=== PATIENT | female | born 1955 | race Caucasian/White ===

== ENCOUNTER → 2021-03-14 16:45 | Outpatient (CLI) | payer MEDICARE, SELFPAY ==
--- NOTE | ~2021-03-14 | MM_ITS ---
EXAMINATION: MM screening kasey BI w kenneth HISTORY: Screening TECHNIQUE: Craniocaudal and mediolateral oblique 3-D tomosynthesis images were obtained and synthetic 2-D images were generated. CAD analysis was submitted and interpreted. COMPARISON: Comparison to multiple prior studies sequentially, with oldest reviewed study dated 05/04. BREAST PARENCHYMAL COMPOSITION: There are scattered areas of fibroglandular density. FINDINGS: There is no evidence of suspicious mass, calcification, or architectural distortion to sugg est malignancy in either breast. There has been no suspicious interval change. IMPRESSION: 1. No mammographic evidence of malignancy. 2. Recommend routine screening mammography in one year. BI-RADS Category 1: Negative Reviewed, dictated and finalized at location A.
== END ==
PROVIDERS: Visit Provider Obstetrics & Gynecology
DX: Z12.31 Encounter for screening mammogram for malignant neoplasm of breast (principal)
CPT/HCPCS: 77063; 77067

== ENCOUNTER 2021-04-16 11:46 | Emergency (ER) | payer MEDICARE, SELFPAY ==
[2021-04-16] VITALS (7 sets, daily range): BP systolic 115–135; BP diastolic 63–98; PULSE 80–109; RESP 14–20; TEMP 37.1–37.2; O2SAT 97–98
--- NOTE | ~2021-04-16 | XR_ITS ---
EXAMINATION: XR chest 2V DATE: 04/16/2021 12:26 INDICATION: Cough and congestion TECHNIQUE: PA and lateral views of the chest were obtained. COMPARISON: Chest radiograph dated 09/06/2019 FINDINGS: The lungs are clear with no focal airspace opacities, pulmonary edema, pleural effusion or pneumothor ax. The cardiomediastinal silhouette is normal. Mild thoracic spondylosis. IMPRESSION: 1. No acute cardiopulmonary disease. Reviewed, dictated and finalized at location A.
[2021-04-16 13:13] LABS: Basophils Percent Auto 0.3 % (0.2-1.2); Hematocrit 40.3 % (37.0-47.0); Hemoglobin 12.9 g/dL (12.0-15.0); Immature Granulocyte Absolute 0.05 K/mm3 (0.00-0.031); Immature Granulocyte Percent A 0.7 % (0-0.5); Lymphocytes Absolute Auto 0.82 K/mm3 (0.9-3.2); Lymphocytes Percent Auto 10.9 % (18.3-44.2); Mean Corpuscular Hemoglobin 30.9 pg (26-34); Mean Corpuscular Volume 96.4 fl (80-100); Mean Platelet Volume 9.3 fl (7.4-10.4); Monocytes Absolute Auto 0.5 K/mm3 (0.1-0.6); Monocytes Percent Auto 6.1 % (2.6-8.5); Neutrophils Absolute Auto 6.2 K/mm3 (1.3-6.7); Platelet Count Result 252 k/mm3 (150-375); Red Blood Count 4.18 M/mm3 (4.2-5.4); White Blood Count 7.5 K/mm3 (4.5-10.0)
[2021-04-16 13:25] LABS: Add Urine Microscopic? YES; Appearance Urine Cloudy (Clear); Bacteria Urine Trace /hpf; Bilirubin Urine Negative (Negative); Blood Urine 2+ (Negative); Color Urine Yellow (Yellow); Glucose Urine UA Negative (Negative); Ketones Urine Negative (Negative); Leukocyte Esterase Ur 3+ LEU/UL (Negative); Mucus Urine Rare /lpf; Nitrate Urine Negative (Negative); Protein Urine 1+ mg/dL (Negative); RBC Urine 51-75 /hpf (0-2); Specific Grav Ur 1.025 (1.001-1.035); Squamous Epithelial Cell Urine Many /hpf (Few); Urobilinogen Urine Negative mg/dL (<2.0); WBC Urine 21-30 /hpf
[2021-04-16 13:34] LABS: Alanine Aminotransferase 32 U/L (4-35); Albumin Level 4.3 g/dL (3.5-5.1); Alkaline Phosphatase 72 U/L (38-126); Anion Gap 12 mmol/L (8-16); Aspartate Amino Transferase 34 U/L (14-36); Bilirubin,Total 0.8 mg/dL (0.2-1.3); Blood Urea Nitrogen 10 mg/dL (7-17); Carbon Dioxide 26 mmol/L (22-30); Chloride 99 mmol/L (98-107); Estimated CRCL calculation 59 ml/min; Estimated Glomerular Filt Rate > 60; Glucose 127 mg/dL (65-110); Lipase 25 U/L (23-300); Potassium 3.9 mmol/L (3.4-5.0); Sodium 137 mmol/L (137-145)
--- NOTE | 2021-04-16 14:57 | ED.GENADULT ---
HPI - General Adult General Chief complaint: Nausea/Vomiting/Diarrhea Stated complaint: Nausea,Congestion Time Seen by Provider: 04/16/21 14:16 Source: patient and RN notes reviewed Mode of arrival: ambulatory Limitations: no limitations History of Present Illness HPI narrative: This is a 66 year old female who presents for evaluation of cough and congestion. She states 2 days ago she developed sinus congestion and drainage. She is concerned because today she feels it has moved to her chest . She reports having a productive cough with green phlegm. She also complains of nausea and 2 episodes of emesis yesterday. She denies fever, chills, chest pain, sob, abdominal pain or diarrhea. She reports 1 year ago she was diagnosed with pneumonia so she wanted to come in to catch it early. Related Data Home Medications Medication Instructions Recorded Confirmed cetirizine [Wal-Zyr (cetirizine)] 10 mg PO DAILY 04/16/21 04/16/21 Allergies Allergy/AdvReac Type Severity Reaction Status Date / Time No Known Allergies Allergy Verified 04/16/21 14:11 Review of Systems Review of Systems: All systems reviewed & are unremarkable except as noted in HPI and below Constitutional: Constitutional: Denies chills, Reports fatigue and Denies fever(s) ENT: Reports nasal congestion Cardiovascular: Cardiovascular: Denies chest pain Respiratory: Respiratory: Reports cough and Denies dyspnea Gastrointestinal: Gastrointestinal: Denies abdominal pain, Denies diarrhea, Reports nausea and Reports vomiting PMFSH Past Medical History Medical History Adhesive capsulitis Anemia Endometriosis Environmental allergies Fibroids History of kidney stones Radius fracture 1988 Rhinitis Right shoulder pain Ureteral calculus 1993 Uterine fibroid Surgical History Surgical History History of dilation and curettage History of kidney surgery kidney stone x2 History of lithotripsy History of surgery on arm x2. History of tonsillectomy and adenoidectomy [place] teeth extracted Family History Family History Other Diabetes mellitus Family history of cardiovascular disease Family history of coronary artery disease Social History Social History Smoking status: Never smoker Second hand tobacco smoke exposure: Yes Alcohol intake: never Substance use: never Substance use type: does not use Gender identity (if verbalized by the patient): Female Exam Const: General: no acute distress and alert Orientation/consciousness: patient oriented x3 Eyes: EOM: EOMs intact bilaterally Chest: Chest palpation & inspection: normal inspection of the chest Resp: Effort & Inspection: normal respiratory effort and no retractions Auscultation: clear to auscultation bilaterally Cardio: Rate: regular rate Rhythm: regular rhythm Heart sounds: no murmurs GI: GI Palp: Yes Soft to palpation, No Tenderness to palpation present (GI) and No Guarding due to palpation present (GI) Auscultation: normal bowel sounds Skin: General skin exam: normal color Rashes: no rashes Neuro: General: patient oriented x3, moves all extremities and CN's II-XI intact bilaterally Psych: Mental Status: mental status grossly normal Affect: normal affect Course Reevaluation(s) Reevaluation #1: I Discussed with patient labs are unremarkable other than UTI. Chest xray is normal. I discussed discharge plan Date: 04/16/21 Time: 18:19 Vital Signs Vital signs: Vital Signs Temperature 98.7 F 04/16/21 12:51 Pulse Rate 109 H 04/16/21 12:51 Respiratory Rate 16 04/16/21 12:51 Blood Pressure 116/63 04/16/21 12:51 Pulse Oximetry 97 04/16/21 12:51 Temperature 98.9 F 04/16/21 14:09 Pulse Rate 80 04/16/21 18:45 Respi
[2021-04-16] MEDS: ONDANSETRON INJ 4 MG/2 ML VIAL IV PUSH ×2 (14:58→18:33)
[2021-04-16] MEDS: SODIUM CHLORIDE 0.9% IV 1,000 ML 999 ML IV CONT (15:05)
[2021-04-16 17:21] LABS: EDCOVIDSCREEN Negative (Negative)
== END 2021-04-16 18:46 | disposition home or self-care (01) ==
PROVIDERS: Emergency Medicine; Emergency Provider General Practice; PCP Family Medicine
DX: Z20.822 Contact with and (suspected) exposure to COVID-19 (principal); N39.0 Urinary tract infection, site not specified; J06.9 Acute upper respiratory infection, unspecified
CPT/HCPCS: 36415; 71046; 80053; 81001; 81025; 83690; 85025; 87086; 87088; 87426; 87804; 96365; 96375; 99284; C9803; J0696; J2405; J7030

== ENCOUNTER → 2021-05-27 18:00 | Outpatient (CLI) | payer MEDICARE, SELFPAY ==
--- NOTE | ~2021-05-27 | DEXA_ITS ---
Bone Density Report Name: Roxi Mariano Age: 66 Sex: Female Ethnicity: White Date of : 1955 Indication: postmenopausal; screening for osteoporosis; height loss; Referring Provider: Austin Teague Study: Bone densitometry was performed. Exam Date: May 27, 2021 Accession number: [id number] Bone Density: Region BMD T-score Z-score Classification AP Spine (L1-L4) 0.670 -3.4 -1.6 Osteoporosis Femoral Neck (Left) 0.591 -2.3 -0.7 Osteopenia Total Hip (Left) 0.743 -1.6 -0.3 Osteopenia Femoral Neck (Right) 0.634 -1.9 -0.4 Osteopenia Total Hip (Right) 0.763 -1.5 -0.2 Osteopenia Total Hip Mean 0.753 -1.6 -0.3 Osteopenia World Health Organization criteria for BMD impression classify patients as: Normal (T-score at or above -1.0), Osteopenia (T-score between -1.0 and -2.5), or Osteoporosis (T-score at or below -2.5). 10-year Fracture Risk: FRAX not reported because: Some T-score for Spine Total or Hip Total or Femoral Neck at or below -2.5 Clinical Information Provided by Patient: Has used the following medications: Vitamin D Patient maximum height was 64.5 Menopause Age: 54 Drinks caffeinated beverages Onset of menses at age 17.5 Number of children 2 Impression: The patient has osteoporosis, based on the Total Spine T-score. Discussion: INCREASED RISK OF FRACTURE. BONE DENSITY IS UNDESIRABLY LOW AT ONE OR MORE SKELETAL SITES, CONSISTENT WITH POSTMENOPAUSAL OSTEOPOROSIS. This patient's lowest T-score meets the World Health Organization's (WHO) criteria for osteoporosis at one or more sites (T-score -2.5 or below). In untreated patients, the risk of osteoporotic fracture increases approximately two-fold for each 1.0 SD decrease in T-score. Low bone density is not the only risk factor for fracture; also consider factors such as patient's age, frailty or poor health, risk of falling, risk of injury, previous osteoporotic fracture, family history of osteoporosis, cigarette smoking, low body weight, etc. Not everyone with low bone mineral density has osteoporosis; osteomalacia and other metabolic bone disorders should also be considered. Patients who have osteoporosis should be evaluated for specific diseases and conditions (secondary causes) that may cause or contribute to bone loss. The [place] Association [employer] Endocrinologists (AACE) and National Osteoporosis Foundation (NOF) recommend pharmacologic intervention for all postmenopausal women whose T-score is in this range. The patient should follow a healthful lifestyle (good nutrition with adequate calcium and vitamin D, and appropriate weight-bearing exercise). Follow-Up: Consider a repeat BMD and Vertebral Fracture Assessment (VFA) exam in 2 years or sooner if medically necessary, to reassess this patient's status. Reported by: FRAN on 05/16
== END ==
PROVIDERS: Visit Provider Obstetrics & Gynecology
DX: M81.0 Age-related osteoporosis without current pathological fracture (principal); M85.852 Other specified disorders of bone density and structure, left thigh; M85.851 Other specified disorders of bone density and structure, right thigh
CPT/HCPCS: 77080

== ENCOUNTER → 2021-09-10 02:14 | Outpatient (CLI) | payer MEDICARE, SELFPAY ==
[2021-09-10 19:36] LABS: SARS-CoV-2 RNA PCR Negative
== END ==
PROVIDERS: PCP Family Medicine; Visit Provider Family Medicine
DX: J02.9 Acute pharyngitis, unspecified (principal); Z20.822 Contact with and (suspected) exposure to COVID-19
CPT/HCPCS: C9803; U0003; U0005

== ENCOUNTER 2021-10-29 15:29 | Outpatient (CLI) | payer MEDICARE, SELFPAY ==
--- NOTE | ~2021-10-29 | XR_ITS ---
XR knee RT 3V 10/29/2021 15:51 Indication: Right knee pain Procedure: 3 views right knee Comparison: No prior studies for comparison. Findings: No fracture, subluxation or dislocation. No significant joint effusion. No foreign bodies. Osteopenia. There is anatomic alignment. There is curvilinear ossification adjacent to the lateral fe moral condyle, likely old avulsion injury. Impression: 1: No acute bone or joint abnormality. Reviewed, dictated and finalized at location B. Impression: 1: No acute bone or joint abnormality.
== END 2021-10-29 15:30 | disposition home or self-care (01) ==
PROVIDERS: PCP Family Medicine; Visit Provider Family Medicine
DX: M25.561 Pain in right knee (principal)
CPT/HCPCS: 73562

== ENCOUNTER 2021-12-09 09:12 | Outpatient (CLI) | payer MEDICARE, SELFPAY ==
--- NOTE | ~2021-12-09 | US_ITS ---
EXAMINATION: US joint non vasc comp RT DATE: 12/09/2021 09:52 INDICATION: Right-sided Marie's cyst. TECHNIQUE: Multiple grayscale and Doppler ultrasound images of the right lower limb were obtained. COMPARISON: Right knee radiographs 11/25/2021 FINDINGS: There is no abnormal mass in the popliteal fossa. No Marie's cyst. IMPRESSION: 1. No right-sided Marie's cyst. Reviewed, dictated and finalized at location B.
== END 2021-12-09 09:13 | disposition home or self-care (01) ==
PROVIDERS: PCP Family Medicine; Visit Provider Nurse Practitioner Family
DX: M71.21 Synovial cyst of popliteal space [Baker], right knee (principal)
CPT/HCPCS: 76881

== ENCOUNTER 2022-01-21 07:30 | Outpatient (CLI) | payer MEDICARE, SELFPAY ==
--- NOTE | ~2022-01-21 | MR_ITS ---
EXAMINATION: MR knee RT wo con DATE: 01/21/2022 08:46 INDICATION: Unilateral primary osteoarthritis, right knee. TECHNIQUE: Magnetic resonance imaging (MRI) of the right knee was performed without intravenous contr ast. Sequences included axial PD-weighted FS FSE, coronal PD-weighted FSE and PD-weighted FS FSE, sag ittal PD-weighted FSE, and sagittal T2-weighted FS FSE. COMPARISON: Right knee radiographs 11/25/2021 FINDINGS: Medial compartment: There is a complex tear of posterior horn of medial meniscus. There is partial-thickness cartilage lo ss of femoral condyle, deep at the central and extreme posterior articular surface with mild subchond ral edema-like marrow signal intensity at the extreme posterior surface. There is shallow partial-thi ckness cartilage loss of tibial condyle. Osteophytes are noted. Lateral compartment: Lateral meniscus is normal. There is cartilage surface irregularity of femoral condyle and tibial con dyle. Osteophytes are noted. Patellofemoral compartment: There is full-thickness cartilage loss of patellar median ridge and medial facet with mild subchondra l edema-like marrow signal intensity. There is partial-thickness cartilage loss of medial trochlea. Ligaments and tendons: The anterior and posterior cruciate ligaments are normal. Medial collateral ligament and lateral ed ateral ligament complex are normal. There is mild patellar tendinopathy. Fluid: There is a moderate-sized knee joint effusion. There is trace fluid in a Marie's cyst. There is mild superficial infrapatellar bursitis. IMPRESSION: 1. Severe chondrosis of patellofemoral compartment, moderate chondrosis of medial compartment, and mi ld chondrosis of lateral compartment. 2. Complex tear of medial meniscus. 3. Moderate-sized knee joint effusion. Reviewed, dictated and finalized at location A. IMPRESSION: 1. Severe chondrosis of patellofemoral compartment, moderate chondrosis of medi al compartment, and mild chondrosis of lateral compartment. 2. Complex tear of medial meniscus. 3. Moderate-sized knee joint effusion.
== END 2022-01-21 07:31 | disposition home or self-care (01) ==
PROVIDERS: PCP Family Medicine; Visit Provider Nurse Practitioner Family
DX: M17.11 Unilateral primary osteoarthritis, right knee (principal); M22.2X1 Patellofemoral disorders, right knee; S83.231A Complex tear of medial meniscus, current injury, right knee, initial encounter; M25.461 Effusion, right knee
CPT/HCPCS: 73721

== ENCOUNTER 2022-02-18 07:25 | Outpatient (CLI) | payer MEDICARE, SELFPAY ==
--- NOTE | 2022-02-18 07:54 | ECG_ITS ---
Measurements Intervals [place] Rate: 81 P: 40 CA: 150 QRS: 1 QRSD: 88 T: 50 QT: 357 QTc: 415 Interpretive Statements SINUS RHYTHM LOW QRS VOLTAGE IN PRECORDIAL LEADS BASELINE ARTIFACT- I, II, III, V4, V6 BORDERLINE ECG Electronically Signed On 02-18-2022 8:15:26 CDT by Gulshan Toth D.O.
[2022-02-18 08:38] LABS: Basophils Percent Auto 0.6 % (0.2-1.2); Eosinophils Absolute Auto 0.2 K/mm3 (0-0.3); Eosinophils Percent Auto 3.4 % (0-4.4); Hematocrit 38.7 % (37.0-47.0); Hemoglobin 12.6 g/dL (12.0-15.0); Immature Granulocyte Absolute 0.02 K/mm3 (0.00-0.031); Immature Granulocyte Percent A 0.4 % (0-0.5); Lymphocytes Absolute Auto 2.05 K/mm3 (0.9-3.2); Lymphocytes Percent Auto 40.8 % (18.3-44.2); Mean Corpuscular HGB Conc 32.6 g/dl (32-36); Mean Corpuscular Hemoglobin 31.7 pg (26-34); Mean Corpuscular Volume 97.2 fl (80-100); Mean Platelet Volume 9.9 fl (7.4-10.4); Monocytes Absolute Auto 0.4 K/mm3 (0.1-0.6); Monocytes Percent Auto 8.2 % (2.6-8.5); Neutrophils Absolute Auto 2.4 K/mm3 (1.3-6.7); Neutrophils Percent Auto 46.6 % (45.5-73.1); Platelet Count Result 262 k/mm3 (150-375); Red Blood Count 3.98 M/mm3 (4.2-5.4); Red Cell Distribution Width 12.7 % (11.5-14.5)
== END 2022-02-18 07:26 | disposition home or self-care (01) ==
LOC: ANHLAB 07:28
PROVIDERS: PCP Family Medicine; Visit Provider Nurse Practitioner
DX: Z01.810 Encounter for preprocedural cardiovascular examination (principal); R94.31 Abnormal electrocardiogram [ECG] [EKG]
CPT/HCPCS: 36415; 85025; 93005

== ENCOUNTER 2022-02-25 00:58 | Day surgery (SDC) | payer MEDICARE, SELFPAY ==
--- NOTE | 2022-02-18 11:12 | PC.NURSE ---
Report to the Outpatient Waiting Room, entrance under the green pavilion located off [facility], at time __1130 on date _02/25/22 . OR Time: _1330 . - You and your visitor will be asked a series of questions to screen for COVID 19 for your protection. - Only one visitor is allowed at this time. - The patient visitor is requested to leave or wait in car when not with patient. - A mask is required within the hospital. Patients may have clear liquids (water, carbonated beverages, clear teas, apple juice) until 3 hours prior to surgery with a maximum of 20 ounces. - No food from midnight until time of surgery - Infants may have breast milk until 4 hours before surgery, infant formula 6 hours prior to surgery. - Children will be allowed to drink immediately following surgery. If applicable, please bring a bottle or sippy cup to assist with drinking. Juice, water, soda, and popsicles are readily available. For infants on formula, please bring formula the day of surgery. Pacifiers are allowed. Take the following medications with a SIP of water the morning of surgery: _NONE Medications to discontinue per physician ALL VITAMINS AND SUPPLEMENTS 3 DAYS PRE OP Date to take last dose 02/21/22 Please no make-up, nail maltese, hairspray, perfume, deodorant, or body powder the day of surgery. No jewelry (including any body piercings) or valuables the day of surgery, leave them at home. Please take a shower or bath the night before, or the morning of, surgery with an antibacterial soap. Wear comfortable, loose fitting clothing. Children are encouraged to wear pajamas. - Jewelry must be removed prior to entering the operating room. Rings and piercings that are not removed may be cut off. - The hospital will not accept responsibility for valuables. - Please leave all valuables, including medications, at home the day of surgery. If you are going home after surgery, a licensed chuck wagon driver must drive you home. - NO public transportation without another adult. - We recommend that an adult stay with you for 24 hours following discharge. - We also recommend that you do not drive, make important decision, drink alcoholic beverages, or take any drugs that were not prescribed by your health care provider for at least 24 hours after your discharge time. For Pediatric surgeries, we recommend two adults accompany the child home (only one inside the building at this time). Follow any additional instructions given to you from your surgeon. If you or anyone in your household have experienced Covid symptoms in the past week, please notify your surgeon or the nurse liaison at the phone number below for possible testing. Telephone instructions given to __PATIENT and asked if any additional questions and then verbalized understanding. Patient advised to call surgeon office or pre surgery nurse liaison [phone] if any additional questions.
[2022-02-18 11:16] VITALS: BMI 26.4
[2022-02-25] VITALS (8 sets, daily range): BP systolic 103–142; BP diastolic 56–90; PULSE 65–102; RESP 13–18; TEMP 36.4–36.8; O2SAT 99–100
--- NOTE | 2022-02-25 07:13 | WPDHPUPDATE1 ---
History and Physical Update Update Date/Time: 02/25/22 07:13 History and Physical has been reviewed, including an updated exam of the patient. There are NO changes in the patient's condition. Risks, benefits, and alternatives have been discussed and questions answered. Patient agrees to proceed with procedure.
[2022-02-25] MEDS: CELECOXIB 200 MG CAPSULE PO (09:04)
[2022-02-25] MEDS: ACETAMINOPHEN 500 MG TABLET 1000 MG PO (09:04)
[2022-02-25] MEDS: LACTATED RINGERS 1,000 ML 30 ML IV CONT (09:35)
--- NOTE | 2022-02-25 09:52 | WPDANESEPPF ---
Anes - Initial Pre Proc Eval Procedure: Operation Date: 02/25/22 10:30 Proposed Procedures p Right Knee Arthroscopy, Proceed As Indicated - Pranav Lanier MD Date/Time: 02/25/22 09:52 Surgeon: Pranav Lanier MD Pre Op Diagnosis: right knee medial meniscus tear Patient Data Age: 67 Gender: F Height: 1.63 m Weight: 69.2 kg Last Vital Signs Temp 36.8 C 02/25/22 09:43 Pulse 93 02/25/22 09:43 Resp 16 02/25/22 09:43 BP 113/56 L 02/25/22 09:43 Pulse Ox 100 02/25/22 09:43 O2 Del Method Room Air 02/25/22 09:43 Allergies Allergy/AdvReac Type Severity Reaction Status Date / Time No Known Allergies Allergy Verified 02/25/22 08:47 Home Medications Medication Instructions Recorded Confirmed Type acetaminophen 500 mg tablet 500 mg PO Q6H PRN Pain 02/18/22 02/25/22 History (Acetaminophen Extra Strength) cetirizine 10 mg tablet (Zyrtec) 10 mg PO DAILY 02/18/22 02/25/22 History cholecalciferol (vitamin D3) 50 50 mcg PO DAILY 02/18/22 02/25/22 History mcg (2,000 unit) tablet Patient hx anesthesia problems: none Family hx anesthesia problems: none Results Review: All pre-operative results and documents have been reviewed as part of the pre-operative evaluation. [facility] Past Medical History Medical History (Updated 02/17/22 @ 13:08 by Elizabet Bailey NP) Adhesive capsulitis Anemia Endometriosis Environmental allergies Fibroids History of kidney stones Medial meniscus tear Radius fracture 1988 Right knee DJD Right knee pain Right shoulder pain SOB (shortness of breath) Ureteral calculus 1993 Uterine fibroid Surgical History Surgical History History of dilation and curettage History of kidney surgery (~2018) kidney stone x2 1998 History of lithotripsy (~2018) 1998 History of surgery on arm (~1988) x2. History of tonsillectomy and adenoidectomy (~1959) [place] teeth extracted Family History Family History Other Diabetes mellitus Family history of cardiovascular disease Family history of coronary artery disease Social History Social History Smoking status: Never smoker Second hand tobacco smoke exposure: Yes Alcohol intake: never Substance use: never Substance use type: does not use Living arrangements: with family Gender identity (if verbalized by the patient): Female Spiritual care concerns: No Anes - Eval Final PreProcedure Day of Procedure 02/25/22 09:52 Patient weight: overweight Heart: regular rate and rhythm Lungs: clear to auscultation and normal air movement Airway: Mallampati scale class II Neurological: alert and oriented Last oral intake: >/= 8 hours ASA classification: II Emergent: no Anesthetic plan: proceed Anesthesia type and monitoring: general LMA Results Review: All pre-operative results and documents have been reviewed as part of the pre-operative evaluation. Informed Consent: The patient's anesthetic plan and its attendant risks and benefits were discussed with the patient/family/POA. Questions were solicited and answers provided to the satisfaction of the patient/family/POA.
[2022-02-25] MEDS: SCOPOLAMINE 1.5 MG PATCH TRANSDERM (10:05)
--- NOTE | 2022-02-25 10:05 | WPDANESEPPF ---
Anes - Initial Pre Proc Eval Procedure: Operation Date: 02/25/22 10:30 Proposed Procedures p Right Knee Arthroscopy, Proceed As Indicated - Pranav Lanier MD Date/Time: 02/25/22 10:05 Surgeon: Pranav Lanier MD Pre Op Diagnosis: right knee medial meniscus tear Patient Data Age: 67 Gender: F Height: 1.63 m Weight: 69.2 kg Last Vital Signs Temp 36.8 C 02/25/22 09:43 Pulse 93 02/25/22 09:43 Resp 16 02/25/22 09:43 BP 113/56 L 02/25/22 09:43 Pulse Ox 100 02/25/22 09:43 O2 Del Method Room Air 02/25/22 09:43 Allergies Allergy/AdvReac Type Severity Reaction Status Date / Time No Known Allergies Allergy Verified 02/25/22 08:47 Home Medications Medication Instructions Recorded Confirmed Type acetaminophen 500 mg tablet 500 mg PO Q6H PRN Pain 02/18/22 02/25/22 History (Acetaminophen Extra Strength) cetirizine 10 mg tablet (Zyrtec) 10 mg PO DAILY 02/18/22 02/25/22 History cholecalciferol (vitamin D3) 50 50 mcg PO DAILY 02/18/22 02/25/22 History mcg (2,000 unit) tablet Patient hx anesthesia problems: none Family hx anesthesia problems: none Results Review: All pre-operative results and documents have been reviewed as part of the pre-operative evaluation. PMFSH Past Medical History Medical History Adhesive capsulitis Anemia Endometriosis Environmental allergies Fibroids History of kidney stones Medial meniscus tear Radius fracture 1988 Right knee DJD Right knee pain Right shoulder pain SOB (shortness of breath) Ureteral calculus 1993 Uterine fibroid Surgical History Surgical History History of dilation and curettage History of kidney surgery (~2018) kidney stone x2 1998 History of lithotripsy (~2018) 1998 History of surgery on arm (~1988) x2. History of tonsillectomy and adenoidectomy (~1959) [place] teeth extracted Family History Family History Other Diabetes mellitus Family history of cardiovascular disease Family history of coronary artery disease Social History Social History Smoking status: Never smoker Second hand tobacco smoke exposure: Yes Alcohol intake: never Substance use: never Substance use type: does not use Living arrangements: with family Gender identity (if verbalized by the patient): Female Spiritual care concerns: No Anes - Eval Final PreProcedure Day of Procedure 02/25/22 10:05 Patient weight: overweight Heart: regular rate and rhythm Lungs: clear to auscultation Airway: Mallampati scale class II Neurological: alert and oriented ASA classification: II Emergent: no Anesthetic plan: proceed Anesthesia type and monitoring: general LMA and standard monitoring Results Review: All pre-operative results and documents have been reviewed as part of the pre-operative evaluation. Informed Consent: The patient's anesthetic plan and its attendant risks and benefits were discussed with the patient/family/POA. Questions were solicited and answers provided to the satisfaction of the patient/family/POA.
[2022-02-25] MEDS: ceFAZolin 2 GM/D5W 50 ML 2 GM/50 ML BAG IVPB (10:14)
[2022-02-25] MEDS: BUPIVACAINE HCL 0.25% PF 30 ML VIAL INFILTRATE (10:44)
--- NOTE | 2022-02-25 11:19 | P.OP_ITS ---
Procedure Note - Detailed Date of Procedure 02/25/22 Pre-op Diagnosis right knee medial meniscus tear Post-op Diagnosis Same Procedure Performed LEFT KNEE SCOPE Surgeon Pranav Lanier MD Anesthesia General Description of Procedure PATIENT WAS TAKEN TO THE OR. LEFT LEG WAS PREPPED AND DRAPED STERILE. TROCARS WE RE PLACED IN THE USUAL FASHION. CAMERA WAS INTRODUCED. THERE WAS CHONDROMALACIA TO THE PATELLA FEMORAL JOINT. THE MEDIAL COMPARTMENT SHOWED CHONDROMALACIA TO THE MEDIAL FEMORAL CONDYLE. A SHAVER WAS USED TO PREFORM A CHONDROPLASTY. THERE WAS A COMPLEX MEDIAL MENISCUS TEAR. THE TEAR WAS RESECTED WITH A BITER AND A SHAVER DOWN TO A SMOOTH BASE. ABOUT 20% OF THE MENISCUS WAS REMOVED. THE ACL WAS INTACT. THE LATERAL MENISCUS WAS NOT TORN. THERE WAS NO CHONDROMALACIA TO THE LATERAL COMPARTMENT. THE PATELLO FEMORAL JOINT UNDERWENT CHONDROPLASTY. THERE WAS GRADE 2 CHONDROMALACIA IN PART OF THE TROCHLEA AND PART OF THE PATELLA. SYNOVECTOMY WAS PREFORMED IN THE SUPERIOR MEDIAL COMPARTMENT. THE WOUNDS WERE APPROXIMATED WITH 4.0 NYLON. STERILE DRESSING WAS APPLIED. PATIENT WAS EXTUBATED. Estimated Blood Loss 5 Complications No immediate complications Condition Stable Disposition PACU
--- NOTE | 2022-02-25 11:20 | SUR.PHASEI ---
Simple mask removed at 1120.
== END 2022-02-25 12:40 | disposition home or self-care (01) ==
PROVIDERS: PCP Family Medicine; Visit Provider Orthopaedic Surgery
PROC: (CPT 29870; principal; 2022-02-25 10:30)
DX: M23.331 Other meniscus derangements, other medial meniscus, right knee (principal); M94.261 Chondromalacia, right knee; M17.11 Unilateral primary osteoarthritis, right knee
CPT/HCPCS: 29881; 36415; 85025; 93005; A9270; J0690; J1100; J2250; J2405; J2704; J7120

== ENCOUNTER 2022-11-30 08:01 | Outpatient (CLI) | payer MEDICARE, SELFPAY ==
[2022-11-30 19:14] LABS: Basophils Percent Auto 0.4 % (0.2-1.2); Eosinophils Absolute Auto 0.2 K/mm3 (0-0.3); Eosinophils Percent Auto 3.1 % (0-4.4); Hematocrit 42.1 % (37.0-47.0); Hemoglobin 13.2 g/dL (12.0-15.0); Immature Granulocyte Absolute 0.02 K/mm3 (0.00-0.031); Immature Granulocyte Percent A 0.4 % (0-0.5); Lymphocytes Absolute Auto 1.71 K/mm3 (0.9-3.2); Lymphocytes Percent Auto 33.5 % (18.3-44.2); Mean Corpuscular HGB Conc 31.4 g/dl (32-36); Mean Corpuscular Hemoglobin 31.2 pg (26-34); Mean Corpuscular Volume 99.5 fl (80-100); Mean Platelet Volume 9.9 fl (7.4-10.4); Monocytes Absolute Auto 0.4 K/mm3 (0.1-0.6); Neutrophils Absolute Auto 2.8 K/mm3 (1.3-6.7); Neutrophils Percent Auto 55.6 % (45.5-73.1); Platelet Count Result 300 k/mm3 (150-375); Red Blood Count 4.23 M/mm3 (4.2-5.4); White Blood Count 5.1 K/mm3 (4.5-10.0)
[2022-11-30 20:26] LABS: Alanine Aminotransferase 24 U/L (6-35); Albumin Level 4.2 g/dL (3.5-5.1); Alkaline Phosphatase 69 U/L (38-126); Anion Gap 3 mmol/L (8-16); Aspartate Amino Transferase 34 U/L (14-36); Bilirubin,Total 0.6 mg/dL (0.2-1.3); Blood Urea Nitrogen 12 mg/dL (7-17); Calcium 8.9 mg/dL (8.4-10.2); Carbon Dioxide 32 mmol/L (22-30); Chloride 104 mmol/L (98-107); Cholesterol 245 mg/dL (0-200); Estimated Glomerular Filt Rate > 60; Glucose 93 mg/dL (65-110); HDL Direct 35 mg/dL; Potassium 4.6 mmol/L (3.4-5.0); Sodium 139 mmol/L (137-145); Triglycerides 151 mg/dL (<150)
[2022-11-30 20:37] LABS: LDL Cholesterol Direct 157 mg/dL
== END 2022-11-30 08:02 | disposition home or self-care (01) ==
LOC: ANHGOSHLAB 08:02
PROVIDERS: PCP Family Medicine; Visit Provider Nurse Practitioner Family
DX: E78.5 Hyperlipidemia, unspecified (principal)
CPT/HCPCS: 36415; 80053; 80061; 84443; 85025

== ENCOUNTER 2023-03-01 08:02 | Outpatient (CLI) | payer MEDICARE, SELFPAY ==
[2023-03-01 13:51] LABS: Cholesterol 220 mg/dL (0-200); HDL Direct 40 mg/dL; Triglycerides 109 mg/dL (<150)
[2023-03-01 14:02] LABS: LDL Cholesterol Direct 129 mg/dL
== END 2023-03-01 08:03 | disposition home or self-care (01) ==
PROVIDERS: PCP Family Medicine; Visit Provider Family Medicine
DX: E78.5 Hyperlipidemia, unspecified (principal)
CPT/HCPCS: 36415; 80061

== ENCOUNTER 2023-07-06 13:35 | Outpatient (CLI) | payer MEDICARE, SELFPAY ==
--- NOTE | 2023-07-06 14:34 | ECG_ITS ---
Measurements Intervals [place] Rate: 82 P: 46 ND: 208 QRS: -1 QRSD: 73 T: 48 QT: 358 QTc: 419 Interpretive Statements SINUS RHYTHM LOW QRS VOLTAGE IN PRECORDIAL LEADS CANNOT RULE OUT SEPTAL INFARCT, AGE INDETERMINATE BASELINE ARTIFACT- I, II, III, AVR, AVL, AVF, V3-V6 ABNORMAL ECG COMPARED TO ECG 02/18/2022 08:01:35 NO SIGNIFICANT CHANGES Electronically Signed On 07-06-2023 16:47:08 REFURBISH TECHNICIAN by Gulshan Toth D.O.
[2023-07-06 15:00] LABS: Basophils Percent Auto 0.2 % (0.2-1.2); Eosinophils Absolute Auto 0.1 K/mm3 (0-0.3); Eosinophils Percent Auto 1.9 % (0-4.4); Hematocrit 39.5 % (37.0-47.0); Hemoglobin 12.2 g/dL (12.0-15.0); Immature Granulocyte Absolute 0.01 K/mm3 (0.00-0.031); Immature Granulocyte Percent A 0.2 % (0-0.5); Lymphocytes Absolute Auto 2.43 K/mm3 (0.9-3.2); Mean Corpuscular HGB Conc 30.9 g/dl (32-36); Mean Corpuscular Hemoglobin 30.7 pg (26-34); Mean Corpuscular Volume 99.5 fl (80-100); Mean Platelet Volume 9.7 fl (7.4-10.4); Monocytes Absolute Auto 0.4 K/mm3 (0.1-0.6); Monocytes Percent Auto 6.6 % (2.6-8.5); Neutrophils Absolute Auto 3.4 K/mm3 (1.3-6.7); Neutrophils Percent Auto 53.1 % (45.5-73.1); Platelet Count Result 284 k/mm3 (150-375); Red Blood Count 3.97 M/mm3 (4.2-5.4); Red Cell Distribution Width 12.7 % (11.5-14.5); White Blood Count 6.4 K/mm3 (4.5-10.0)
[2023-07-06 15:08] LABS: Alanine Aminotransferase 21 U/L (6-35); Albumin Level 4.3 g/dL (3.5-5.1); Alkaline Phosphatase 64 U/L (38-126); Anion Gap 5 mmol/L (8-16); Aspartate Amino Transferase 30 U/L (14-36); Bilirubin,Total 0.7 mg/dL (0.2-1.3); Blood Urea Nitrogen 18 mg/dL (7-17); Calcium 9.3 mg/dL (8.4-10.2); Carbon Dioxide 30 mmol/L (22-30); Chloride 105 mmol/L (98-107); Estimated Glomerular Filt Rate > 60; Glucose 94 mg/dL (65-110); Potassium 4.5 mmol/L (3.4-5.0); Sodium 140 mmol/L (137-145)
[2023-07-06 15:13] LABS: INR 0.9; Prothrombin Time 12.7 Seconds (11.1-14.7)
[2023-07-06 15:14] LABS: Partial Thromboplastin Time 28.2 SECONDS (22.3-36.8)
== END 2023-07-06 13:36 | disposition home or self-care (01) ==
LOC: ANHSURGERY 13:42
PROVIDERS: PCP Family Medicine; Visit Provider Urology
DX: N81.4 Uterovaginal prolapse, unspecified (principal); Z01.818 Encounter for other preprocedural examination; R94.31 Abnormal electrocardiogram [ECG] [EKG]
CPT/HCPCS: 36415; 80053; 85025; 85610; 85730; 86850; 86900; 86901; 93005

== ENCOUNTER 2023-07-19 02:10 | Day surgery (SDC) | payer MEDICARE, SELFPAY ==
--- NOTE | 2023-07-06 13:23 | PC.NURSE ---
PRE-OP INSTRUCTIONS, PLEASE READ CAREFULLY Report to the Outpatient Waiting Room, entrance under the green pavilion located off [facility], at time _0930_ on date _07/19/23_. Planned Procedure Time: _1130_. PACK A SMALL OVERNIGHT BAG AND LEAVE IN THE CAR Time changes happen often and if your time is changed the preop area will call you the afternoon before. - You and your visitor will be asked to self-screen and do not enter if you have any COVID symptoms. - A mask is optional within the hospital at this time. -VISITING HOURS 8AM-8PM Patients may have clear liquids (water, carbonated beverages, clear teas, apple juice) until 3 hours prior to surgery (0830 AM) with a maximum of 20 ounces. - No food from midnight until time of surgery Take the following medications with a SIP of water the morning of surgery: _TYLENOL IF NEEDED_ DO NOT STOP ANY OF YOUR OTHER PRESCRIPTION MEDICATIONS PRIOR TO SURGERY ?EXCEPT THE FOLLOWING Medications to discontinue per physician ____NONE____, Date to take last dose Please no make-up, nail nauruan, hairspray, perfume, deodorant, or body powder the day of surgery. No jewelry (including any body piercings) or valuables the day of surgery, leave them at home. Please take a shower or bath the night before, or the morning of, surgery with an antibacterial soap. Wear comfortable, loose fitting clothing. - Jewelry must be removed prior to entering the operating room. Rings and piercings that are not removed may be cut off. - The hospital will not accept responsibility for valuables. - Please leave all valuables, including medications, at home the day of surgery. If you are going home after surgery, a licensed school bus driver/teacher assistant must drive you home. - NO public transportation without another adult if you receive anesthesia. - We recommend that an adult stay with you for 24 hours following discharge. - We also recommend that you do not drive, make important decision, drink alcoholic beverages, or take any drugs that were not prescribed by your health care provider for at least 24 hours after your discharge time. Follow any additional instructions given to you from your surgeon. If you or anyone in your household have experienced Covid symptoms in the past week, please notify your surgeon or the nurse liaison at the phone number below for possible testing. Instructions given to _PATIENT_and asked if any additional questions and then verbalized understanding. Patient advised to call surgeon office or pre surgery nurse liaison [phone] if any additional questions.
[2023-07-06 14:05] VITALS: BP 138/66; PULSE 78; RESP 18; TEMP 36.9; O2SAT 100; BMI 25.9
--- NOTE | 2023-07-10 18:43 | PM.IMHP ---
H&P: HPI History of Present Illness Date/Time: 07/10/23 18:43 Chief Complaint: POP/occult ISD Narrative: 68 yo with uterine prolpase and MARINA noted on uro c/2 ISD Review of Systems Review of Systems: All systems reviewed & are unremarkable except as noted in HPI and below PMFSH Past Medical History Medical History Adhesive capsulitis Anemia Endometriosis Environmental allergies Fibroids Gastroesophageal reflux disease History of kidney stones Hyperlipidemia Medial meniscus tear Mixed stress and urge urinary incontinence Osteoporosis Radius fracture 1988 Right knee DJD Right knee pain Right shoulder pain SOB (shortness of breath) Ureteral calculus 1993 Uterine fibroid Surgical History Surgical History History of dilation and curettage History of kidney surgery (~2018) kidney stone x2 1998 History of lithotripsy (~2018) 1998 History of surgery on arm (~1988) x2. History of tonsillectomy and adenoidectomy (~1959) [place] teeth extracted Family History Family History Other Diabetes mellitus Family history of cardiovascular disease Family history of coronary artery disease Social History Social History Smoking status: Never smoker Second hand tobacco smoke exposure: No Alcohol intake: never Substance use: never Substance use type: does not use Lack of Transportation: No Lack of Food: Never True Current Housing: I Have Housing Concerned About Future Housing: No Difficulty Paying Gas/Electric Bills: No Difficulty Paying for Meds: No Currently Unemployed: No Education: High School Diploma/GED Living arrangements: with family Occupation/Education: retired Gender identity (if verbalized by the patient): Female Spiritual care concerns: No Agree to blood products: Yes Meds Home Medications and Allergies Home Medications Medication Instructions Recorded Confirmed Type acetaminophen 500 mg tablet 500 mg PO Q6H PRN Pain 02/18/22 07/06/23 History (Acetaminophen Extra Strength) cetirizine 10 mg tablet (Zyrtec) 10 mg PO DAILY 02/18/22 07/06/23 History cholecalciferol (vitamin D3) 50 50 mcg PO DAILY 02/18/22 07/06/23 History mcg (2,000 unit) tablet famotidine 20 mg tablet 20 mg PO DAILY PRN ACID REFLEX 07/06/23 07/06/23 History Allergies Allergy/AdvReac Type Severity Reaction Status Date / Time latex AdvReac SKIN Verified 07/06/23 14:02 IRRITATION Exam Narrative: NAD normal brething fixed urethra anterior wall +4 [place] at 0 Assessment and Plan Assessment and plan (1) Uterine prolapse: Code(s): N81.4 - Uterovaginal prolapse, unspecified Status: Acute (2) Intrinsic sphincter deficiency (ISD): Code(s): N36.42 - Intrinsic sphincter deficiency (ISD) Status: Acute Plan Robotic Colpopexy/Bulking agent. Risks, bennifits, alternative discussed and documented in office chart
--- NOTE | 2023-07-16 10:57 | PM.IMHP ---
H&P: HPI History of Present Illness Date/Time: 07/16/23 10:57 Chief Complaint: prolapse and urinary incontinence Narrative: 68-year-old with uterine prolapse. Stress incontinence noted on Review of Systems Review of Systems: All systems reviewed & are unremarkable except as noted in HPI and below PMFSH Past Medical History Medical History Adhesive capsulitis Anemia Endometriosis Environmental allergies Fibroids Gastroesophageal reflux disease History of kidney stones Hyperlipidemia Medial meniscus tear Mixed stress and urge urinary incontinence Osteoporosis Radius fracture 1988 Right knee DJD Right knee pain Right shoulder pain SOB (shortness of breath) Ureteral calculus 1993 Uterine fibroid Surgical History Surgical History History of dilation and curettage History of kidney surgery (~2018) kidney stone x2 1998 History of lithotripsy (~2018) 1998 History of surgery on arm (~1988) x2. History of tonsillectomy and adenoidectomy (~1959) [place] teeth extracted Family History Family History Other Diabetes mellitus Family history of cardiovascular disease Family history of coronary artery disease Social History Social History Smoking status: Never smoker Second hand tobacco smoke exposure: No Alcohol intake: never Substance use: never Substance use type: does not use Lack of Transportation: No Lack of Food: Never True Current Housing: I Have Housing Concerned About Future Housing: No Difficulty Paying Gas/Electric Bills: No Difficulty Paying for Meds: No Currently Unemployed: No Education: High School Diploma/GED Living arrangements: with family Occupation/Education: retired Gender identity (if verbalized by the patient): Female Spiritual care concerns: No Agree to blood products: Yes Meds Home Medications and Allergies Home Medications Medication Instructions Recorded Confirmed Type acetaminophen 500 mg tablet 500 mg PO Q6H PRN Pain 02/18/22 07/06/23 History (Acetaminophen Extra Strength) cetirizine 10 mg tablet (Zyrtec) 10 mg PO DAILY 02/18/22 07/06/23 History cholecalciferol (vitamin D3) 50 50 mcg PO DAILY 02/18/22 07/06/23 History mcg (2,000 unit) tablet famotidine 20 mg tablet 20 mg PO DAILY PRN ACID REFLEX 07/06/23 07/06/23 History Allergies Allergy/AdvReac Type Severity Reaction Status Date / Time latex AdvReac SKIN Verified 07/06/23 14:02 IRRITATION Exam Narrative: no acute distress alert orient x3 fixed urethra anterior wall +4. [place] at 0 Assessment and Plan Assessment and plan (1) Intrinsic sphincter deficiency (ISD): Code(s): N36.42 - Intrinsic sphincter deficiency (ISD) Status: Acute (2) Uterine prolapse: Code(s): N81.4 - Uterovaginal prolapse, unspecified Status: Acute Plan plan for robotic colpopexy as well as bulking agent. Understands risks of bleeding, infection, damage to surrounding organs or the urinary tract, recurrent prolapse, recurrent or persistent incontinence, postoperative voiding dysfunction including incontinence and retention, hip and leg pain, dyspareunia, mesh related complications including exposure and extrusion, need for ancillary procedures. She agrees to proceed.
[2023-07-19] VITALS (9 sets, daily range): BP systolic 99–121; BP diastolic 51–65; PULSE 81–98; RESP 11–15; TEMP 36.2–36.8; O2SAT 92–100; BMI 25.9
--- NOTE | 2023-07-19 07:10 | WPDHPUPDATE1 ---
History and Physical Update Update Date/Time: 07/19/23 07:10 History and Physical has been reviewed, including an updated exam of the patient. There are NO changes in the patient's condition. Risks, benefits, and alternatives have been discussed and questions answered. Patient agrees to proceed with procedure.
[2023-07-19] MEDS: LACTATED RINGERS 1,000 ML 30 ML IV CONT ×2 (10:10→14:10)
[2023-07-19] MEDS: ACETAMINOPHEN 500 MG TABLET 1000 MG PO (10:19)
[2023-07-19] MEDS: KETOROLAC 15 MG/ML VIAL (*BKC) IV PUSH ×2 (10:20→18:21)
[2023-07-19] MEDS: SCOPOLAMINE 1.5 MG PATCH TRANSDERM (10:55)
--- NOTE | 2023-07-19 10:56 | WPDANESEPPF ---
Anes - Initial Pre Proc Eval Procedure: Operation Date: 07/19/23 11:30 Proposed Procedures p Robotic Sacrocolpopexy - Barber Lacey MD s Cystoscopy with Injection Bulking Agent - Barber Lacey MD s Robotic Assisted Laparoscopic Supracervical Hysterectomy with Bilateral Salpingo-oophorectomy - Austin Teague MD Date/Time: 07/19/23 10:56 Surgeon: Barber Lacey MD Pre Op Diagnosis: Complete Uterovaginal Prolapse, Stress Incont Patient Data Age: 68 Gender: F Height: 1.63 m Weight: 68.4 kg Last Vital Signs Temp 98.5 F 07/06/23 14:05 Pulse 78 07/06/23 14:05 Resp 18 07/06/23 14:05 BP 138/66 07/06/23 14:05 Pulse Ox 100 07/06/23 14:05 O2 Del Method Room Air 07/06/23 14:05 Allergies Allergy/AdvReac Type Severity Reaction Status Date / Time latex AdvReac SKIN Verified 07/06/23 14:02 IRRITATION Home Medications Medication Instructions Recorded Confirmed Type acetaminophen 500 mg tablet 500 mg PO Q6H PRN Pain 02/18/22 07/06/23 History (Acetaminophen Extra Strength) cetirizine 10 mg tablet (Zyrtec) 10 mg PO DAILY 02/18/22 07/06/23 History cholecalciferol (vitamin D3) 50 50 mcg PO DAILY 02/18/22 07/06/23 History mcg (2,000 unit) tablet famotidine 20 mg tablet 20 mg PO DAILY PRN ACID REFLEX 07/06/23 07/06/23 History Patient hx anesthesia problems: post op nausea/vomiting Family hx anesthesia problems: none Results Review: All pre-operative results and documents have been reviewed as part of the pre-operative evaluation. [facility] Past Medical History Medical History Adhesive capsulitis Anemia Endometriosis Environmental allergies Fibroids Gastroesophageal reflux disease History of kidney stones Hyperlipidemia Medial meniscus tear Mixed stress and urge urinary incontinence Osteoporosis Radius fracture 1988 Right knee DJD Right knee pain Right shoulder pain SOB (shortness of breath) Ureteral calculus 1993 Uterine fibroid Surgical History Surgical History History of dilation and curettage History of kidney surgery (~2018) kidney stone x2 1998 History of lithotripsy (~2018) 1998 History of surgery on arm (~1988) x2. History of tonsillectomy and adenoidectomy (~1959) [place] teeth extracted Family History Family History Other Diabetes mellitus Family history of cardiovascular disease Family history of coronary artery disease Social History Social History Smoking status: Never smoker Second hand tobacco smoke exposure: No Alcohol intake: never Substance use: never Substance use type: does not use Lack of Transportation: No Lack of Food: Never True Current Housing: I Have Housing Concerned About Future Housing: No Difficulty Paying Gas/Electric Bills: No Difficulty Paying for Meds: No Currently Unemployed: No Education: High School Diploma/GED Living arrangements: with family Occupation/Education: retired Gender identity (if verbalized by the patient): Female Spiritual care concerns: No Agree to blood products: Yes Anes - Eval Final PreProcedure Day of Procedure 07/19/23 10:56 Patient weight: normal Heart: regular rate and rhythm Lungs: clear to auscultation Airway: Mallampati scale class II Neurological: alert and oriented Last oral intake: >/= 8 hours ASA classification: II Emergent: no Anesthetic plan: proceed Anesthesia type and monitoring: general ETT and standard monitoring Results Review: All pre-operative results and documents have been reviewed as part of the pre-operative evaluation. Informed Consent: The patient's anesthetic plan and its attendant risks and benefits were discussed with the patient/family/POA. Questions were solicited and answers provided
--- NOTE | 2023-07-19 11:33 | WPDHPUPDATE1 ---
History and Physical Update Update Date/Time: 07/19/23 11:33 History and Physical has been reviewed, including an updated exam of the patient. There are NO changes in the patient's condition. Risks, benefits, and alternatives have been discussed and questions answered. Patient agrees to proceed with procedure.
[2023-07-19] MEDS: ceFAZolin 2 GM/D5W 50 ML 2 GM/50 ML BAG IVPB (11:38)
[2023-07-19] MEDS: metroNIDAZOLE 500 MG/ISO 100ML 500 MG/100 ML BAG 100 MG IVPB (11:38)
[2023-07-19] MEDS: BUPIVACAINE/EPINEPHRINE 0.5% 50 ML VIAL 20 ML INFILTRATE (12:09)
--- NOTE | 2023-07-19 12:48 | W.PM.PROC2 ---
Procedure Note - Detailed Date of Procedure 07/19/23 Pre-op Diagnosis Complete Uterovaginal Prolapse, Stress Incont Post-op Diagnosis Same Procedure Performed Robotic assisted supracervical hysterectomy with bilateral salpingo-oophorectomy Surgeon Austin Teague MD Anesthesia General Indications pelvic organ prolapse Findings normal-appearing uterus, ovaries, and fallopian tubes. Some scarring over the posterior cul-de-sac peritoneum. Description of Procedure This patient was taken to the operating room. She was prepped and draped in the dorsal lithotomy position after induction of general anesthesia. the robot trocars and docking was performed by Dr. Lacey. a tenaculum was applied to the vaginal mucosa at the cervicovaginal juncture posteriorly. This was done with a speculum and tenaculum. The speculum was placed. The cervix was grasped with a tenaculum. Trocars were placed by Dr. Lacey. The location of the ureters was identified at the pelvic brim. The ovaries were grasped and raised. The infundibulopelvic ligaments were cauterized and transected with LigaSure cautery. This was all done in a bilateral fashion. The para ovarian tissue was cauterized and transected with LigaSure cautery bilaterally. Moving around the ovary into the broad ligament the tissue was cauterized transected with The vessel sealer cautery. The round ligaments were cauterized transected with the vessel sealer cautery this was all done in a bilateral fashion. In a stepwise fashion along the lateral aspects of the uterus the round ligament and broad ligaments were cauterized transected down to the level of the uterine arteries. The cervix was transected using unipolar cautery. the uterus was bifurcated down to the level the cervix. The uterus and bilateral tubes and ovaries were laid off to the side for Dr. Lacey to remove later. The remainder of the procedure was performed by Dr. Lacey, again he finished the surgery. Urine Output 800 Drains Yes Packing No Pathology Yes Complications No immediate complications Condition Stable Disposition Floor
--- NOTE | 2023-07-19 14:05 | W.PM.PROC2 ---
Procedure Note - Detailed Date of Procedure 07/19/23 Pre-op Diagnosis Complete Uterovaginal Prolapse, Intrinsic sphincter deficiency Post-op Diagnosis Same Procedure Performed Robotic assisted laparoscopic sacral colpopexy Cystoscopy with transurethral bulking agent Surgeon Barber Lacey MD Anesthesia General Indications A woman with with uterine prolapse as well as stress incontinence. Her stress incontinence is de Ninfa on urodynamics. It is due to intrinsic sphincter deficiency. She desires surgical correction. She is here for the above. She understands risks of bleeding, infection, diskitis, damage to surrounding organs, bowel injury, bowel obstruction, mesh related complications including exposure and extrusion, postoperative voiding dysfunction including incontinence and retention, need for ancillary procedures, need for repeat bulking agent. Dyspareunia, recurrence of prolapse, and other perioperative intraoperative postoperative complications. She agrees to proceed. Findings See below Description of Procedure She was correctly identified. Informed consent obtained. She from the operating room. She was given general anesthesia. She was given appropriate perioperative antibiotics. She was placed a low lithotomy position. Pressure points were padded. A time-out performed. I marked out the skin 3 fingerbreadths cephalad to the umbilicus. I anesthetized the skin. I incised the skin. I dissected down to the fascia. I grasped the fascia with Stacie clamps. I entered the fascia sharply in a Parry type technique. I placed sutures for later fascial closure. I placed a midline trocar. I examined the abdomen. There is no sign of any injury. Under direct vision I placed 2 additional trocars in the right upper quadrant and 2 additional trocars the left upper quadrant. She was placed in steep Trendelenburg. The robot was docked. Her customer manager completed their portion of the procedure. Please see that operative report for details. I then sat at the console. The Sizer in the vagina created plane on the anterior and posterior vaginal wall. I took great care not to injure the vagina, bladder, or rectum. I introduced the mesh into the abdomen. I sewed the anterior leaflet of mesh on the anterior vaginal wall. I sewed the posterior leaflet of mesh on the posterior vaginal wall. This was done with several sutures of 2 0 [place]. I reflected the colon laterally. I opened the posterior peritoneum over the sacral promontory. I carried this into the cul-de-sac. I freed up the edges for later retroperitonealization. I located the anterior longitudinal ligament the sacrum. I cleaned off all fatty tissues. I then tensioned my mesh appropriately. I did a vaginal exam the bedside. I assured prolapse reduction without undue tension. There was a small degree of redundant anterior vaginal wall tissue. I opted to not perform a concomitant cystocele repair as it was above the hymenal ring. I then sewed the proximal leaflet of mesh onto the anterior longitudinal ligament of the sacrum with several sutures of 2 0 [place]. I then used a 2 0 Monocryl to completely and meticulously retroperitonealized all mesh. I allowed the colon to go back to its normal anatomic location. There is no sign of any impingement. The specimen was then removed. All ports removed. Fascia was tied down. Skin was closed with Monocryl and surgical glue. I then performed cystoscopy. There was no tumors or surgical artifact. Both ureters were seen to excrete clear yellow urine. There is no surgical artifact in the bladder or urethra. I chose a site in the mid urethra 2 cm distal to bladder neck. I injected bulking agent circumferentially forming 4 pillows. I used 1 syringe of bulking agent total. There was excellent bulking effect. I left the bladder partially full. She was awakened and transferred to PACU in stable condition. Implants Sacral colpopexy m
[2023-07-19] MEDS: fentaNYL CITRATE INJ (*CRX) 100 MCG/2 ML VIAL 25 MCG IV PUSH ×2 (14:34→14:40)
--- NOTE | 2023-07-19 15:45 | OBPPTRN ---
Patient transferred to post room #289 via bed. Support person present. Oriented to unit, room, information boards. Patient verbalizes understanding.
[2023-07-19] MEDS: KCL 20 MEQ/D5/0.45% SOD CHL 1,000 ML 100 ML IV CONT (16:12)
--- NOTE | 2023-07-19 17:32 | PC.NURSE ---
Got patient up to the bathroom per request, patient unable to void. Expressed feeling a strong urge to go but being unable to. Walked patient back to bed and asked if she would like me to use the bladder scanner to check how full her bladder was. Scan showed 193ml in bladder currently. Explained that this RN would walk her back to the bathroom to attempt again before rechecking.
[2023-07-19] MEDS: ACETAMINOPHEN 325 MG TABLET 650 MG PO (20:15)
[2023-07-19] MEDS: ceFAZolin 1 GM/NS 50 ML 1 GM/50 ML BAG IVPB (22:25)
[2023-07-20] MEDS: ONDANSETRON INJ 4 MG/2 ML VIAL IV PUSH (00:45)
[2023-07-20 04:00] VITALS: BP 134/85; PULSE 82; RESP 16; TEMP 36.7; O2SAT 100
[2023-07-20] MEDS: ACETAMINOPHEN 325 MG TABLET 650 MG PO ×2 (05:10→13:50)
[2023-07-20] MEDS: ceFAZolin 1 GM/NS 50 ML 1 GM/50 ML BAG IVPB ×2 (06:52→13:49)
--- NOTE | 2023-07-20 07:28 | WPDANESPN ---
Anes - Prog Note Post-Op Date/Time: 07/20/23 07:28 Cardiovascular status: normal Respiratory status: normal Airway patency: baseline Mental status: baseline Post-Op hydration status: normal Vital Signs: Last Vital Signs Temp 36.7 C 07/20/23 04:00 Pulse 82 07/20/23 04:00 Resp 16 07/20/23 04:00 BP 134/85 07/20/23 04:00 Pulse Ox 100 07/20/23 04:00 O2 Del Method Room Air 07/20/23 04:00 O2 Flow Rate 8 07/19/23 14:25 Pain Score (VAS): 2 I/O: Intake & Output 07/19/23 07/19/23 07/20/23 15:59 23:59 07:59 Intake Total 300 50 Output Total 1600 150 250 Balance -1300 -100 -250 Post-procedural complaints: none Patient Feedback: Patient satisfied with anesthetic care.
[2023-07-20] MEDS: LORATADINE 10 MG TABLET PO (07:37)
[2023-07-20] MEDS: DOCUSATE SODIUM 100 MG CAPSULE PO (07:37)
[2023-07-20 07:53] VITALS: BP 104/68; PULSE 66; RESP 16; TEMP 36.6; O2SAT 99
--- NOTE | 2023-07-20 08:21 | PM.GYNPNOP ---
AREA DIRECTOR - A/P Postoperative Procedures: Procedures Operation Date: 07/19/23 11:30 Actual Procedure Side Surgeon p Robotic Sacrocolpopexy Barber Lacey MD s Cystoscopy with Injection Bulking Agent Barber Lacey MD s Robotic Assisted Laparoscopic Supracervical Hysterectomy with Bilateral Salpingo-oophorectomy Austin Teague MD Postoperative day: 1 Postoperative status: doing well Postoperative plan: see orders Time Spent With Patient Time: Total time spent is greater than 50% in coordination of care (as documented) at patient's floor/unit and/or counseling patient: Time with patient: less than 15 minutes AREA DIRECTOR- PN:Subj Post-Op Subjective Date/time seen: 07/20/23 08:21 Subjective: patient reports feeling better, patient has no complaints and pain is well controlled Exam Const: General: healthy appearing, comfortable and no acute distress Resp: Auscultation: clear to auscultation bilaterally, no rales, no rhonchi and no wheezes Cardio: Rate: regular rate Heart sounds: no click, no murmurs and no rubs GI: Inspection: non-distended Auscultation: normal bowel sounds Extrem: General: normal to inspection, no pedal edema and no calf tenderness AREA DIRECTOR - PN: Obj Data Vital Signs Vital Signs: Vital Signs - 24 hr 07/19/23 09:35 07/19/23 14:10 07/19/23 14:25 Temperature 97.1 F L 97.5 F L Pulse Rate 91 98 82 Respiratory Rate 14 11 L 12 Blood Pressure 121/57 L 119/55 L 103/51 L Pulse Oximetry 99 99 100 Oxygen Delivery Room Air Simple Face Mask Simple Face Mask Oxygen Flow Rate 8 8 07/19/23 14:40 07/19/23 14:55 07/19/23 15:10 Temperature Pulse Rate 83 84 81 Respiratory Rate 14 12 12 Blood Pressure 114/56 L 107/65 112/57 L Pulse Oximetry 96 94 92 Oxygen Delivery Room Air Room Air Room Air Oxygen Flow Rate 07/19/23 15:25 07/19/23 15:54 07/19/23 15:54 Temperature 98.2 F Pulse Rate 90 87 Respiratory Rate 14 14 Blood Pressure 111/64 99/57 L Pulse Oximetry 93 94 Oxygen Delivery Room Air Room Air Oxygen Flow Rate 07/19/23 20:02 07/19/23 20:02 07/20/23 04:00 Temperature 98.1 F Pulse Rate 93 93 82 Respiratory Rate 15 15 16 Blood Pressure 117/65 Pulse Oximetry 97 97 100 Oxygen Delivery Room Air Room Air Oxygen Flow Rate 07/20/23 04:00 07/20/23 07:53 Temperature 98.1 F 97.8 F Pulse Rate 82 66 Respiratory Rate 16 16 Blood Pressure 134/85 104/68 Pulse Oximetry 100 99 Oxygen Delivery Oxygen Flow Rate Intake/Output Intake/Output: Intake & Output 07/17/23 07/18/23 07/19/23 07/20/23 23:59 23:59 23:59 23:59 Intake Total 350 240 Output Total 1750 250 Balance -1400 -10 Meds/Results Medications: Active Medications Generic Name Dose Route Start Last Admin Trade Name Freq PRN Reason Stop Dose Admin Acetaminophen 650 mg 07/19/23 15:31 07/20/23 05:10 Acetaminophen 325 Mg Tablet PO 650 mg Q4H PRN Administration Mild Pain (1-3) or Fever Hydrocodone Bitart/Acetaminophen 1 tab 07/19/23 15:31 Hydrocodone/Acetaminophen (*Crx) 5-325 Mg Tablet PO Q4H PRN Pain Rated 4-5 Cephalexin HCl 500 mg 07/20/23 13:00 Cephalexin 500 Mg Capsule PO QID SHIV Diphenhydramine HCl 25 mg 07/19/23 15:31 Diphenhydramine Hcl Inj 50 Mg/Ml Vial IV PUSH Q6H PRN Itching Docusate Sodium 100 mg 07/20/23 09:00 07/20/23 07:37 Docusate Sodium 100 Mg Capsule PO 100 mg DAILY SHIV Administration Enoxaparin Sodium 30 mg 07/21/23 09:00 Enoxaparin 30 Mg/0.3 Ml Syringe SUB-Q DAILY SHIV Famotidine 20 mg 07/19/23 15:31 Famotidine 20 Mg Tablet PO DAILY PRN ACID REFLEX Potassium Chloride/Dextrose/Sod Cl 1,000 mls @ 100 mls/hr 07/19/23 15:31 07/20/23 06:56 Kcl 20 Meq/D5/0.45% Sod Chl IV CONT Not Given .Q10H SHIV Cefazolin Sodium 1 gm in 50 mls @ 100 mls/hr 07/19/23 20:00 07/20/23 06:52 Ancef 1 Gm/Ns 50 Ml IVPB 07/20/23 12:29 100 mls/hr Q8H SHIV Administration Ketor
--- NOTE | 2023-07-20 08:38 | WPDANESPN ---
Anes - Prog Note Post-Op Date/Time: 07/20/23 08:38 Cardiovascular status: normal Respiratory status: normal Airway patency: baseline Mental status: baseline Post-Op hydration status: normal Vital Signs: Last Vital Signs Temp 36.6 C 07/20/23 07:53 Pulse 66 07/20/23 07:53 Resp 16 07/20/23 07:53 BP 104/68 07/20/23 07:53 Pulse Ox 99 07/20/23 07:53 O2 Del Method Room Air 07/20/23 04:00 O2 Flow Rate 8 07/19/23 14:25 Pain Score (VAS): 2/10 I/O: Intake & Output 07/19/23 07/20/23 07/20/23 23:59 07:59 15:59 Intake Total 50 240 Output Total 150 250 Balance -100 -10 Post-procedural complaints: none Patient Feedback: Patient satisfied with anesthetic care.
== END 2023-07-20 14:30 | disposition home or self-care (01) ==
LOC: ANHSURGERY 11:21 → ANHOB2 15:36
PROVIDERS: PCP Family Medicine; Referring Provider Urology; Visit Provider Obstetrics & Gynecology
PROC: (CPT 57425; principal; 2023-07-19 11:30)
PROC: 3E0K8GC Introduction of Other Therapeutic Substance into Genitourinary Tract, Via Natural or Artificial Opening Endoscopic (ICD-10-PCS; CPT 57425; 2023-07-19 11:30)
PROC: 0UT94ZZ Resection of Uterus, Percutaneous Endoscopic Approach (ICD-10-PCS; CPT 57425; 2023-07-19 11:30)
DX: N81.4 Uterovaginal prolapse, unspecified (principal); N36.42 Intrinsic sphincter deficiency (ISD); N39.3 Stress incontinence (female) (male); K21.9 Gastro-esophageal reflux disease without esophagitis; E78.5 Hyperlipidemia, unspecified; N80.03 Adenomyosis of the uterus
CPT/HCPCS: 57425; 51715; 58542; 36415; 80053; 85025; 85610; 85730; 86850; 86900; 86901; 88307; 93005; 99199; A9270; C1781; J0690; J1100; J1170; J1836; J1885; J2405; J2704; J3010; J3480; J7030; J7120; L8606

== ENCOUNTER → 2023-10-06 14:29 | Outpatient (CLI) | payer MEDICARE, SELFPAY ==
--- NOTE | ~2023-10-06 | XR_ITS ---
EXAMINATION: XR ankle LT min 3V DATE: 10/06/2023 14:44 INDICATION: Pain in left ankle and joints of left foot. TECHNIQUE: 4 views of left ankle were obtained. COMPARISON: Left ankle radiographs 03/12/2005 FINDINGS: Bone alignment is normal. There is an avulsion fracture of dorsal proximal aspect of navicu lar. Joint spaces are normal. There are enthesophytes at the posterior and plantar aspects of calcane al tuberosity. There is ankle soft tissue swelling. IMPRESSION: 1. Chip fracture of the dorsal proximal aspect of navicular, which may be acute or chronic. Reviewed, dictated and finalized at location E. 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
== END ==
PROVIDERS: PCP Family Medicine; Visit Provider Nurse Practitioner Family
DX: S92.252D Displaced fracture of navicular [scaphoid] of left foot, subsequent encounter for fracture with routine healing (principal); X58.XXXD Exposure to other specified factors, subsequent encounter
CPT/HCPCS: 73610

== ENCOUNTER 2023-11-05 09:35 | Outpatient (CLI) | payer MEDICARE, SELFPAY ==
--- NOTE | ~2023-11-05 | XR_ITS ---
XR ankle LT min 3V DATE: 11/05/2023 09:49 INDICATION: Pain TECHNIQUE: 4 views COMPARISON: October 06, 2023, March 12, 2005 left ankle radiographic examinations FINDINGS: No fracture or dislocation of the ankle or disruption of the ankle mortise is detected. Small cortical avulsion fracture of the proximal dorsal aspect of the navicular bone of indeterminate age appears unchanged since October 06, 2023, not present on 03/12/2005. Mild plantar calcaneal enthesopathy. IMPRESSION: No significant change since October 06, 2023 Reviewed, dictated and finalized at location B.
== END 2023-11-05 09:36 | disposition home or self-care (01) ==
LOC: ANHIMG 09:38
PROVIDERS: PCP Family Medicine; Visit Provider Physician Assistant Surgical
DX: S92.252A Displaced fracture of navicular [scaphoid] of left foot, initial encounter for closed fracture (principal); X58.XXXA Exposure to other specified factors, initial encounter
CPT/HCPCS: 73610

== ENCOUNTER 2023-12-03 08:35 | Outpatient (CLI) | payer MEDICARE, SELFPAY ==
[2023-12-03 19:32] LABS: Basophils Percent Auto 0.5 % (0.2-1.2); Eosinophils Absolute Auto 0.1 K/mm3 (0-0.3); Eosinophils Percent Auto 1.8 % (0-4.4); Hematocrit 40.1 % (37.0-47.0); Hemoglobin 12.5 g/dL (12.0-15.0); Immature Granulocyte Absolute 0.02 K/mm3 (0.00-0.031); Immature Granulocyte Percent A 0.5 % (0-0.5); Lymphocytes Absolute Auto 1.58 K/mm3 (0.9-3.2); Lymphocytes Percent Auto 35.6 % (18.3-44.2); Mean Corpuscular HGB Conc 31.2 g/dl (32-36); Mean Corpuscular Hemoglobin 30.6 pg (26-34); Mean Corpuscular Volume 98.3 fl (80-100); Mean Platelet Volume 10.1 fl (7.4-10.4); Monocytes Absolute Auto 0.3 K/mm3 (0.1-0.6); Monocytes Percent Auto 7.4 % (2.6-8.5); Neutrophils Absolute Auto 2.4 K/mm3 (1.3-6.7); Neutrophils Percent Auto 54.2 % (45.5-73.1); Platelet Count Result 292 k/mm3 (150-375); Red Blood Count 4.08 M/mm3 (4.2-5.4); Red Cell Distribution Width 12.7 % (11.5-14.5); White Blood Count 4.4 K/mm3 (4.5-10.0)
[2023-12-03 19:41] LABS: Alanine Aminotransferase 22 U/L (6-35); Albumin Level 4.3 g/dL (3.5-5.1); Alkaline Phosphatase 77 U/L (38-126); Anion Gap 2 mmol/L (4-12); Aspartate Amino Transferase 31 U/L (14-36); Bilirubin,Total 0.7 mg/dL (0.2-1.3); Blood Urea Nitrogen 13 mg/dL (7-17); Calcium 9.3 mg/dL (8.4-10.2); Carbon Dioxide 30 mmol/L (22-30); Chloride 106 mmol/L (98-107); Cholesterol 222 mg/dL (0-200); Estimated Glomerular Filt Rate > 60; Glucose 96 mg/dL (65-110); HDL Direct 43 mg/dL; Potassium 4.4 mmol/L (3.4-5.0); Sodium 138 mmol/L (137-145); Triglycerides 91 mg/dL (<150)
[2023-12-03 19:52] LABS: LDL Cholesterol Direct 158 mg/dL
[2023-12-08 11:18] LABS: Vitamin D 1,25 (OH)2 Total 51 pg/mL (18-72); Vitamin D2 1,25 (OH)2 <8 pg/mL; Vitamin D3 1,25 (OH)2 51 pg/mL
== END 2023-12-03 08:36 | disposition home or self-care (01) ==
LOC: ANHGOSHLAB 08:36
PROVIDERS: PCP Family Medicine; Visit Provider Nurse Practitioner Family
DX: Z78.0 Asymptomatic menopausal state (principal); E78.5 Hyperlipidemia, unspecified; E55.9 Vitamin D deficiency, unspecified
CPT/HCPCS: 36415; 80053; 80061; 82652; 85025

== ENCOUNTER 2024-05-15 12:34 | Outpatient (CLI) | payer MEDICARE, SELFPAY ==
--- NOTE | ~2024-05-15 | MM_ITS ---
EXAMINATION: MM screening kasey BI w kenneth HISTORY: Screening TECHNIQUE: Craniocaudal and mediolateral oblique 3-D tomosynthesis images were obtained and synthetic 2-D images were generated. CAD analysis was submitted and interpreted. COMPARISON: Comparison to multiple prior studies sequentially, with oldest reviewed study dated 05/07. BREAST PARENCHYMAL COMPOSITION: Not dense: There are scattered areas of fibroglandular density. FINDINGS: There is no evidence of suspicious mass, calcification, or architectural distortion to sugg est malignancy in either breast. There has been no suspicious interval change. IMPRESSION: 1. No mammographic evidence of malignancy. 2. Recommend routine screening mammography in one year. BI-RADS Category 1: Negative Reviewed, dictated and finalized at location B.
== END 2024-05-15 12:35 | disposition home or self-care (01) ==
LOC: MICIMG 12:34
PROVIDERS: PCP Nurse Practitioner Family; Visit Provider Nurse Practitioner Family
DX: Z12.31 Encounter for screening mammogram for malignant neoplasm of breast (principal)
CPT/HCPCS: 77063; 77067

== ENCOUNTER 2024-11-21 10:25 | Outpatient (CLI) | payer MEDICARE, SELFPAY ==
--- NOTE | ~2024-11-21 | DEXA_ITS ---
Bone Density Report Name: MAYANK MCGUIRE Age: 69 Sex: Female Ethnicity: White Date of : 1955 Indication: postmenopausal; screening for osteoporosis; hysterectomy; Referring Provider: TOD SESAY Study: Bone densitometry was performed. Exam Date: November 21, 2024 Accession number: [id number] Bone Density: Region BMD T-score Z-score Classification AP Spine(L1-L4) 0.723 -2.9 -0.9 Osteoporosis Femoral Neck (Left) 0.559 -2.6 -0.8 Osteoporosis Total Hip (Left) 0.737 -1.7 -0.2 Osteopenia Femoral Neck (Right) 0.606 -2.2 -0.4 Osteopenia Total Hip (Right) 0.779 -1.3 0.2 Osteopenia Total Hip Mean 0.758 -1.5 0.0 Osteopenia World Health Organization criteria for BMD impression classify patients as: Normal (T-score at or above -1.0), Osteopenia (T-score between -1.0 and -2.5), or Osteoporosis (T-score at or below -2.5). 10-year Fracture Risk: FRAX not reported because: Some T-score for Spine Total or Hip Total or Femoral Neck at or below -2.5 Clinical Information Provided by Patient: Has used the following medications: Vitamin D Has the following medical conditions: Hysterectomy Patient maximum height was 65 Menopause Age: 53 No regular weight bearing exercise Drinks caffeinated beverages Onset of menses at age 17 Number of children 2 Impression: The patient has osteoporosis, based on the Total Spine T-score. Discussion: INCREASED RISK OF FRACTURE. BONE DENSITY IS UNDESIRABLY LOW AT ONE OR MORE SKELETAL SITES, CONSISTENT WITH POSTMENOPAUSAL OSTEOPOROSIS. This patient's lowest T-score meets the World Health Organization's (WHO) criteria for osteoporosis at one or more sites (T-score -2.5 or below). In untreated patients, the risk of osteoporotic fracture increases approximately two-fold for each 1.0 SD decrease in T-score. Low bone density is not the only risk factor for fracture; also consider factors such as patient's age, frailty or poor health, risk of falling, risk of injury, previous osteoporotic fracture, family history of osteoporosis, cigarette smoking, low body weight, etc. Not everyone with low bone mineral density has osteoporosis; osteomalacia and other metabolic bone disorders should also be considered. Patients who have osteoporosis should be evaluated for specific diseases and conditions (secondary causes) that may cause or contribute to bone loss. The [place] Association [employer] Clinical Endocrinologists (AACE) and National Osteoporosis Foundation (NOF) recommend pharmacologic intervention for all postmenopausal women whose T-score is in this range. The patient should follow a healthful lifestyle (good nutrition with adequate calcium and vitamin D, and appropriate weight-bearing exercise). Follow-Up: Consider a repeat BMD and Vertebral Fracture Assessment (VFA) exam in 2 years or sooner if medically necessary, to reassess this patient's status. Reported by: FRAN on 11/21/2024 11:03:00 AM. Reviewed, dictated and finalized at location [facility]
--- OUTSIDE RECORDS SUMMARY | 2024-11-21 11:44 | XMS_ITS | Data Portability ---
Author Organization [facility] Address [address] [place] [address] Care Team Providers Care Casino Floor Walker Name Role Phone RADHASUSANA CARLOS Primary Care Provider Assessment No assessment recorded. Plan of Treatment Reminders Order Date Submit Date Provider Last Modified By Organization Details Last Modified Time Details Appointments None recorded. Lab None recorded. Referral urogynecolo gist referral 2022 023 WESTON Lacey MD, [address] [facility] [address], [place], [address], 3 19:19:34 Procedures None recorded. Surgeries None recorded. Imaging None recorded. Medication Orders Imvexxy Maintenance Pack 10 mcg vaginal insert [address] [id number], [address], [place], [id number], 3 10:46:42 Patient TargetsNo targets recorded. Patient InstructionsNo instructions recorded. Reason for Referral Urogynecologist Referral for Prolapse of female genital organs Referring Physician: Jennifer Hurst, TOWER ATTENDANT, Encounter Date: 04/09/2023 Results Created Date Observation Date Name Description Value Unit Range Abnormal Flag Note LastModifiedBy Organization Detail LastModifiedTime Result Notes None recorded. Problems Name Problem SNOMED Code Status Onset Date Resolution Date Notes Provider Name and Address Organization Details Recorded Time Urinary tract infectio us disease 69532531 Completed 201301/22/2021 Urinary Tract Infectio n;Record ed Elsewher e: No Locat ion: Romina cortez [facility] S ource: EHR [employer] benigno: N Practi ce ID: 0001 Ashkan lable Time: 04:00:00 PM Lavinia Mckee [facility] 1 10:06:52 Screenin g for malignan t neoplasm of rectum Completed 201501/22/2021 Encounte r for screenin g for malignan t neoplasm of rectum;R ecorded Elsewher e: No Locat ion: Jacque diego [facility] S ource: EHR [employer] benigno: N Practi ce ID: 0001 Ashkan lable Time: 01:00:00 PM Lavinia Mckee [facility] 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 1 10:06:[address] Concept Completed 201601/22/2021 Encntr for general adult medical exam w/o abnormal findings ;Recorde d Elsewher e: No Locat [facility]: [facility] S ource: EHR [employer] benigno: N Practi ce ID: 0001 Ashkan lable Time: 08:30:00 AM Lavinia Mckee [facility] 1 10:06:47 Disorder of pelvic region of trunk Completed 201801/22/2021 Cystocel e;Record ed Elsewher e: No Locat ion: [facility] diego [facility] S ource: EHR [employer] benigno: N Practi ce ID: 0001 Ashkan lable Time: 08:30:00 AM Lavinia Mckee [facility] 1 10:06:24 Blood leukocyt e number above referenc e range [id number] Completed 201801/22/2021 Elevated white blood cell count, unspecif ied;Quintin rded Elsewher e: No Locat ion: [facility] S ource: EHR [employer] benigno: N Practi ce ID: 0001 Ashkan lable Time: 08:30:00 AM Lavinia Mckee [facility] 1 10:06:32 Abdomina l pain [id number] Completed 201301/22/2021 Abdomina l pain, other specifie d site;Rec orded Elsewher e: No Locat ion: [facility] S ource: EHR [employer] benigno: N Practi ce ID: 0001 Ashkan lable Time: 04:00:00 PM Lavinia Mckee [facility] 1 10:06:20 Speciali zed medical examinat ion Completed 201101/22/2021 Routine gynecolo gical examinat ion;Prac aisha ID: 0001 Lavinia Mckee [facility] 10:06:50 Screenin g for malignan t neoplasm of cervix Completed 201101/22/2021 Pap Smear;Pr actice ID: 0001 Lavinia Mckee [facility] 1 10:06:44 Adult health examinat ion Completed 201201/22/2021 Routine general medical examinat ion at a health care facility ;Practic e ID: 0001 Lavinia Mckee [facility] 1 10:06:22 Microsco pic hematuri a [id number] Completed 201501/22/2021 Other microsco pic hematuri a;Record ed Elsewher e: No Locat ion: [facility] S ource: EHR [employer] benigno: N Practi ce ID: 0001 Ashkan lable Time: 01:00:00 PM Lavinia Mckee [facility] 1 10:06:42 Evaluati on finding Completed 201901/22/2021 Hematuri a, unspecif ied;Quintin rded Elsewher e: No Locat ion: Romina cortez [facility] S ource: EHR [employer] benigno: N Practi ce ID: 0001 Ashkan lable Time: 11:56:07 AM Lavinia [facility] 1 10:06:30 Vaginal pessary in situ [id number] 04 Active [address] [facility] 3 12:31:35 Midline cystocel e [id number] Active [facility] 3 12:31:36 History of calculus of kidney [id number] [facility] 3 12:31:36 No history of clinical finding in subject [id number] [facility] 3 12:31:36 Female stress incontin ence [id number] [facility] 3 12:31:36 Third degree uterine prolapse [id number] [facility] 3 12:31:36 Notes:Some problems listed i n Document: #[id number] could not be added to this patient's chart. Please review this document and add these problems to the patient's chart manually as needed. Problem Notes None recorded. Procedures Surgical History Date Name Laterality Status Provider Name and Address Organization Details Recorded Time 2 Pessary Check completed CORNELIA Shields- [address], [place], [address], [place] [facility] 01/20/2022 17:01:33 1 Most Recent Bone Density completed Lavinia [facility] 09/17/2021 12:58:00 1 Pessary Check completed Jennifer Hurst [facility] [address], [place], [address], [facility] 04/25/2021 15:31:49 1 Date of Last Mammogram completed Lavinia Mckee [facility] 04/24/2021 16:44:47 1 completed Lavinia Mckee [facility] 04/24/2021 16:46:29 1 Pessary Insertion completed Jennifer Hurst [facility] [address], [place], [address], [facility] 01/24/2021 11:39:43 1 Pessary Insertion completed Jennifer Hurst [facility] [address], [place], [address], [facility] 01/18/2021 12:25:16 8 Date of Last Pap Smear completed Sharon Lagunas [facility] 10/18/2020 13:46:33 7 completed Lavinia [facility] 01/22/2021 10:08:12 Dilation and Curettage completed Sharon Lagunas [facility] 10/18/2020 13:49:30 Imaging Results None recorded. Procedure Notes None recorded. Medical Equipment None Reported. Allergies No known drug allergies Medications Name Sig Start Date Stop Date Status Note LastModified by Organization Details LastModified Time Zyrtec-D 5 mg-120 mg tablet,ex tended release take 1 tablet by oral route every 12 hours 01/26 completed Prescrib ed Elsewher e: Yes Loca tion: Romina cortez [facility] M odify By: cmedical Encount er DateTime : 12/24/19 12 04:30:00 PM Not Available Not Available Not Available fluconazo le 150 mg tablet TAKE 1 TABLET BY MOUTH ON DAY 3 OF ANTIBIOT ICS AND ON LAST DAY OF ANTIBIOT ICS 09/19 completed Not Available Not Available Not Available hydrocodo ne 5 mg-acetam inophen 325 mg tablet TAKE 1 TABLET BY MOUTH EVERY 6 HOURS NEEDED FOR PAIN active Not Available Not Available No t Available omeprazol e 40 mg capsule,d elayed release TAKE 1 CAPSULE BY MOUTH DAILY 09/19 completed Not Available Not Available Not Available amoxicill in 875 mg tablet TAKE 1 TABLET BY MOUTH EVERY 12 HOURS 10/31 completed Not Available Not Available Not Available famotidin e 20 mg tablet TAKE 1 TABLET BY MOUTH DAILY active Not Available Not Available No t Available docusate sodium 100 mg capsule TAKE ONE CAPSULE BY MOUTH TWICE DAILY active Not Available Not Available No t Available codeine 10 mg-guaife nesin 100 mg/5 mL oral liquid TAKE 5 ML BY MOUTH THREE TIMES DAILY NEEDED FOR COUGH active Not Available Not Available No t Available cefuroxim e axetil 500 mg tablet TAKE 1 TABLET BY MOUTH TWICE DAILY 09/19 completed Not Available Not Available Not Available methylpre dnisolone 4 mg tablets in a dose pack FOLLOW PACKAGE DIRECTIO NS 10/31 completed Not Available Not Available Not Available albuterol sulfate HFA 90 mcg/actua tion aerosol inhaler INHALE 2 PUFFS BY MOUTH FOUR TIMES DAILY NEEDED FOR SHORTNES S OF BREATH OR WHEEZING 09/19 completed Not Available Not Available Not Available hydroxyzi ne HCl 10 mg tablet TAKE 1 TO 2 TABLETS BY MOUTH THREE TIMES DAILY NEEDED FOR NAUSEA OR VOMITING active Not Available Not Available No t Available ondansetr on 4 mg disintegr ating tablet DISSOLVE 1 TABLET ON THE TONGUE EVERY 6 HOURS NEEDED FOR NAUSEA OR VOMITING 09/19 completed Not Available Not Available Not Available Bactrim DS 800 mg-160 mg tablet take 1 tablet by oral route every 12 hours 01/26 completed Prescrib paramjit Gavin e: No Locat ion: Romina cortez [facility] odify By: [facility] DateTime : 10/24/19 14 04:00:00 PM Not Available Not Available Not Available Premarin 0.625 mg/gram vaginal cream INSERT 1 GRAM VAGINALL Y 2 TIMES A WEEK AT BEDTIME 09/19 completed Not Available Not Available Not Available [employer] Allergy 25 mg capsule take 2 capsule by oral route every 4 - 6 hours as needed active Prescrib ed Elsewher e: Yes Loca tion: Romina [facility] Claudette gallegoslu By: [facility]medical [facility] DateTime : 01/27/20 14 09:00:00 AM Not Available Not Available Not Available Vitamins and Minerals active Vitamin D Not Available Not Available Not Available Imvexxy Maintenan ce Pack 10 mcg vaginal insert Insert 1 vaginal insert twice a week by vaginal route for 60 days. 2022 active Not Available Not Available Not Avai lable Vitals Date Recorded Body height Body mass index (BMI) Body weight Systolic blood pressure Diastolic blood pressure Provider Name and Address Organization Details Last Updated DateTime 04/09/2023 160.66 cm 26.7 kg/m2 40698.04 g 126 mm[Hg] 72 mm[Hg] Modesta Chand [facility] 3 10:17:21 Date Recorded Body height Body mass index (BMI) Body weight Systolic blood pressure Diastolic blood pressure Provider Name and Address Organization Details Last Updated DateTime 05/31/2023 160.66 cm 26.9 kg/m2 63198.63 g 138 mm[Hg] 79 mm[Hg] [facility] 3 12:31:15 Date Recorded Body height Body mass index (BMI) Body weight Systolic blood pressure Diastolic blood pressure Provider Name and Address Organization Details Last Updated DateTime 07/12/2023 160.66 cm 26.9 kg/m2 94630.63 g 123 mm[Hg] 79 mm[Hg] [facility] 3 10:08:19 Date Recorded Body height Body mass index (BMI) Body weight Systolic blood pressure Diastolic blood pressure Provider Name and Address Organization Details Last Updated DateTime 07/26/2023 160.66 cm 26.9 kg/m2 39913.63 g 135 mm[Hg] 84 mm[Hg] [facility] 3 12:13:31 Social History Question Answer Notes LastModified by Organizat ion Details LastModified Time Tobacco Smoking Status Never Smoker Sharon Lagunas [facility] 10/18/2020 15:40:30 What Is Your Level Of Alcohol Consumption? Occasional Information not available 01/22/2021 Are You Blind Or Do You Have Difficulty Seeing? No Information n ot available 01/22/2021 What Is Your Level Of Caffeine Consumption? Occasional Information not available 01/22/2021 In The 14 Days Before Symptom Onset, Have You Had Close Contact With A Laboratory-confirm ed COVID-19 While That Case Was Ill? No Information n ot available 04/09/2023 In The 14 Days Before Symptom Onset, Have You Had Close Contact With A Person Who Is Under Investigation For COVID-19 While That Person Was Ill? No Information not available 04/09/2023 Have You Been To An Area Known To Be High Risk For COVID-19? No Information not available 04/09/2023 Are You Deaf Or Do You Have Serious Difficulty Hearing? No Information not available 01/22/2021 What Type Of Diet Are You Following? REGULAR Information n ot available 01/22/2021 Do You Use Your Seat Belt Or Car Seat Routinely? Yes Information not available 01/22/2021 Do You Have Smoke And Carbon Monoxide Detectors In Your Home? Yes Information not available 01/22/2021 Do You Feel Stressed (tense, Restless, Nervous, Or Anxious, Or Unable To Sleep At Night)? [id number] Information not available 01/22/2021 Do You Use Any Illicit Or Recreational Drugs? No Information not available 10/18/2020 Do You Use Sunscreen Routinely? Yes Information not available 01/22/2021 Has Tobacco Cessation Counseling Been Provided? No Information not available 10/18/2020 Do You Or Have You Ever Used Any Other Forms Of Tobacco Or Nicotine? No Information not available 10/18/2020 Sex: Unknown Functional Status Question Answer Note LastModified by Organizat ion Details LastModified Time Do you have difficulty walking or climbing stairs? No Information not available 10/31/2021 Are you able to walk? YESWOREST Information not available 01/22/2021 Are you able to care for yourself? Yes Information not available 10/31/2021 Do you have difficulty dressing or bathing? No Information not available 10/31/2021 What is your exercise level? Moderate Information not available 01/22/2021 Mental Status None recorded. Family History Relationship Description Onset Age of this Age Resolved Age Notes LastModified by Organization Details LastModified Time Mother Diabetes mellitus Not available 2020 13:48:18 Mother Congestive heart failure Not available 2020 13:48:28 Mother Cyst of ovary Not available 2020 13:48:47 Brother Congestive heart failure Not available 2020 13:48:28 Brother Asthma Not available 0 10/18/2020 13:48:55 Sister Cyst of ovary Not available 2020 13:48:47 Sister Asthma Not available 13:48:55 Maternal Grandfather Tuberculosis Not available 0 10/18/2020 13:49:02 Medical History Condition Response Other Anemia Y Kidney or Bladder Problems Y Gynecological History Statement/Question Response Date of Last Mammogram 03/14/2021 STIs/STDs N 03/14/2021 Current Control Method Hysterectom y 17 If Post Menopausal, Age at Menopause [age] Most Recent Bone Density 05/27/2021 Sexually Active? N Menses Monthly N Date of Last Pap Smear 04/11/2018 Sexual Problems? N Desired Control Method None LMP Unknown 04/21/2017 Obstetrics History GPAL:G 5 P 2 0 3 3 Type Value Full Term 2 Spontaneous 3 Living 3 Total 5 Immunizations Vaccine Type Date Status Note Provider Nam e and Address Organization Details Recorded Time SARS-COV-2 (COVID-19) vaccine, UNSPECIFIED completed Not Available [facility] 04/28/2023 16:36:26 Past Encounters Encounter ID Performer Location Encounter Start Date Encounter Closed Date Diagnosis/Indication Diagnosis SNOMED-CT Code Diagnosis ICD10 Code Diagnosis Note [id number] Jennifer Hurst [facility] [address] [address] 10/18/2020 15:31:38 10/18/2020 17:28:34 Gynecologic examination 65811306 Z01.419 Take Calcium with Vitamin D 12-1500mg daily. Do monthly self breast exams. It is advised to get annual flu shot in the fall and she could obtain at [facility] or [facility] clinic. If you haven't received the Tdap vaccine in the last 10 years you should obtain one as well. Have mammogram yearly, bone density every 2-3 years and colonoscop y every 5-10 years depending on findings and history. Engage in daily exercise of low impact aerobic exercise 45-60 minutes 4-5 times weekly. Avoid tobacco and illicit drugs as well as using moderation with alcohol intake less than 1-2 8 oz beverages daily. This lifestyle behavior pattern will lead to less health conditions and longer life span. If BMI greater than 25 weight watchers or dietary consult advised. Questions have been answered. Patient appears to understand instructio ns, but if you have any further questions call or respond to this email USPSTF recommends against screening for cervical cancer in women older than 65yo who have had adequate prior screening & are not otherwise at high risk for cervical cancer. D/C pap/hpv due to age/pap-hp v hx wnl Postmenopa usal osteopenia [id number] M85.80 Midline cystocele 419378 003 N81.11 cystocele/ bladder prolapse seen on exam We discussed the following: Pessary fitting/tr ial Plus PT Urogyn consult She will consider these options. She does not feel she is having acute issues such as more frequent UTI/pelvic pain/inabi lity to empty bladder and would like to consider her options. Will call with what she would like to move forward with. Suggested daily mositurizi ng of bladder/va bryant to keep these mucosal tissues wet as they are meant to be otherwise this can also be something that causes pain. Precaution s given regarding this issue. Understand ing verbalized . [id number] Jennifer Hurst , [facility] [address] [address] 01/18/2021 10:47:03 01/18/2021 12:31:36 Midline cystocele 714185370 N81.11 Ring with support size #5 from kit. Will call to confirm this is working & we will order one of her own. Urine stream improved immediatel y after insertion of this device. She is VERY happy. Will confirm wednesday that this size is appropriat e & we can place order. [id number] Jennifer Hurst [facility] [address] [address] 01/24/2021 10:09:40 01/24/2021 11:54:05 Midline cystocele 969082242 N81.11 Ring with support size #4 from kit. Will call to confirm this is working & we will order one of her own. Urine stream improved immediatel y after insertion of this device. She is VERY happy. Will confirm wednesday that this size is appropriat e & we can place order. Time spent in visit is a total of 15 mins with at least 50% of visit consisting of counseling and review of plan of care NOT including time spent on procedure fitting. Additional precaution levy measures were taken to minimize potential exposure to the Covid-19 virus during this patient s visit, including available hand laborer car barn upon arrive, temperatur e check and being asked a series of screening questions. All staff wore face coverings during this encounter, as well as provided additional cleaning and sanitizing of all surfaces, including countertop s, pens, chairs, door handles, light switches, etc, prior to and following the patient s visit. [id number] Jennifer Hurst [facility] [address] [address] 02/21/2021 10:33:10 02/21/2021 12:21:45 Prolapse of female genital organs 46484171 N81.9 Trial of pessary ring with support #3 placed today.Seem ed to tolerate well. We discussed trial of vag estrogen therapy again.Is open to this but will need to learn how to take out & replace pessary first.Cons ider urogyn referral if unable to find the appropriat e pessary to discuss other options or other brands/typ es of pessaries as we are limited here. She will call early next week & update us on how she did with current #3 sizing. Time spent in visit is a total of 15 mins with at least 50% of visit consisting of counseling and review of plan of care. Additional precaution levy measures were taken to minimize potential exposure to the Covid-19 virus during this patient s visit, including available hand laborer car barn upon arrive, temperatur e check and being asked a series of screening questions. All staff wore face coverings during this encounter, as well as provided additional cleaning and sanitizing of all surfaces, including countertop s, pens, chairs, door handles, light switches, etc, prior to and following the patient s visit. [id number] [facility] [address] [address] 04/25/2021 14:26:46 04/25/2021 16:02:05 Urinary symptoms 431549327 R39.9 Cystocele 934152499 N81. 10 N89.8 Doing really well with pessary.Fe els it is really helping with pelvic pressure & improved her urine stream which has decreased feeling of urgency & frequency. REcently went to ED a month ago for a URI & was told she also had a UTI.She voice she did not have sx's of UTI.Wants to leave a urine sample to ensure no UTI or this issue has been resolved. Will return in 2mos for pessary check, cleaning & med check.If wants to learn to remove/ins ert pessary at that visit we can review this process at that time. Counseled on medication R/B's, Most common side effects, & use. All questions were answered to patient satisfacti on. Will RTO x 2mos for med check Time spent in visit is a total of 32 mins with at least 50% of visit consisting of counseling and review of plan of care including procedure completed. Additional precaution levy measures were taken to minimize potential exposure to the Covid-19 virus during this patient s visit, including available hand laborer car barn upon arrive, temperatur e check and being asked a series of screening questions. All staff wore face coverings during this encounter, as well as provided additional cleaning and sanitizing of all surfaces, including countertop s, pens, chairs, door handles, light switches, etc, prior to and following the patient s visit. [id number] CORNELIA ShieldsBC [place] [address] [address] 06/20/2021 14:20:31 06/20/2021 15:10:16 Postmenopausal bleeding 69301878 N95.0 Exam wnl todayTo ensure no other issues I have recommende d an US be updated.ana rosa khoury is in agreement. Pessary was cleaned with betadine & warm water.Rein serted pessary and tolerated well. Can have the NicOx's have myself or other providers remove & reinsert pessary for her US.She will then need to return for cleaning q2-3mos pessary until she is comfortabl e removing & reinsertin g this device herself. Time spent in visit is a total of 22 mins with at least 50% of visit consisting of counseling and review of plan of care.Addit ional precaution levy measures were taken to minimize potential exposure to the Covid-19 virus during this patient s visit, including available hand laborer car barn upon arrive, temperatur e check and being asked a series of screening questions. All staff wore face coverings during this encounter, as well as provided additional cleaning and sanitizing of all surfaces, including countertop s, pens, chairs, door handles, light switches, etc, prior to and following the patient s visit. [id number] Radha Nunn [facility] [address] [address] 06/27/2021 15:36:59 06/28/2021 10:41:04 Postmenopausal bleeding 12510978 N95.0 [id number] Jennifer Hurst , [facility] [address],[place] [address] 09/19/2021 12:47:22 09/20/2021 09:29:57 Pessary care 922240225 Z46.89 Here today for 3mos pessary cleaning & vulvovagin al skin check.No issues or concerns today.Eufemia ce is meeting goals and patient happy with current POC. RTO x 3mos pessary cleaning and we can also begin education to remove/jose alejandro nsert this device. Time spent in visit is a total of 15 mins with at least 50% of visit consisting of counseling and review of plan of care.Addit ional precaution levy measures were taken to minimize potential exposure to the Covid-19 virus during this patient s visit, including available hand laborer car barn upon arrive, tempercollin e check and being asked a series of screening questions. All staff wore face coverings during this encounter, as well as provided additional cleaning and sanitizing of all surfaces, including countertop s, pens, chairs, door handles, light switches, etc, prior to and following the patient s visit. [id number] CORNELIA [facility] [address],[place] [address] 10/31/2021 09:29:32 10/31/2021 10:58:27 Gynecologic examination [id number] Z01.419 Take Calcium with Vitamin D 12-1500mg daily. Do monthly self breast exams. It is advised to get annual flu shot in the fall and she could obtain at [facility] or [facility] clinic. If you haven't received the Tdap vaccine in the last 10 years you should obtain one as well. Have mammogram yearly, bone density every 2-3 years and colonoscop y every 5-10 years depending on findings and history. Engage in daily exercise of low impact aerobic exercise 45-60 minutes 4-5 times weekly. Avoid tobacco and illicit drugs as well as using moderation with alcohol intake less than 1-2 8 oz beverages daily. This lifestyle behavior pattern will lead to less health conditions and longer life span. If BMI greater than 25 weight watchers or dietary consult advised. Questions have been answered. Patient appears to understand instructio ns, but if you have any further questions call or respond to this email USPSTF recommends against screening for cervical cancer in women older than 65yo who have had adequate prior screening & are not otherwise at high risk for cervical cancer. D/C pap/hpv due to age/pap-hp v hx wnl Pap/hpv STD Screen declined Genetic Screen discussed Colon Screen utd Dexa Screen due 2022 Routine Labs PCP updated Postmenopa usal osteopenia [id number] M85.80 Declines Rx Therapy.Wi ll continue her weight bearing activity and dietary changes.Wi ll r/p Dexa 2022 Midline cystocele [id number] N81.11 Ring with support size #4 cleaned & reinserted [id number] CORNELIA [facility] [address],[place] [address] 01/20/2022 09:21:52 01/20/2022 18:13:45 Pessary care [id number] Z46.89 Here today for 3mos pessary cleaning & vulvovagin al skin check.No issues or concerns today.Eufemia ce is meeting goals and patient happy with current POC. RTO x 3mos pessary cleaning and we can also begin education to remove/jose alejandro nsert this device. Time spent in visit is a total of 15 mins with at least 50% of visit consisting of counseling and review of plan of care.Addit ional precaution levy measures were taken to minimize potential exposure to the Covid-19 virus during this patient s visit, including available hand laborer car barn upon arrive, temperatur e check and being asked a series of screening questions. All staff wore face coverings during this encounter, as well as provided additional cleaning and sanitizing of all surfaces, including countertop s, pens, chairs, door handles, light switches, etc, prior to and following the patient s visit. [id number] Dacia Rao MD [facility] [address],[place] [address] 02/10/2022 14:53:50 02/11/2022 15:58:42 Vaginal pessary in situ [id number] 104 Z96.0 [id number] Jennifer Hurst [facility] [address],[place] [address] 04/09/2023 10:08:11 04/09/2023 11:13:05 Prolapse of female genital organs [id number] N81.9 mixed prolapse cystoceleF sandra pessaryWor sening from a year agoSignifi cantly effecting physical/m ental/emot ional well-being .rec call to schedule this appt Time spent in visit is a total of 15 mins with at least 50% of visit consisting of counseling and review of plan of care. Atrophic vaginitis 82129 000 N95.2 Restart vag estrogen [id number] Baltazar Teague MD [facility] [address],[place] [address] 05/31/2023 11:36:24 05/31/2023 12:51:23 Prolapse of female genital organs [id number] N81.9 this patient is a 60-year-ol d female with pelvic organ prolapse who failed pessary. We discussed surgery today. We discussed a combinatio n surgery with Urology. Made a decision to perform surgery today. We spent 40 minutes face-to-fa ce. More than 50% was counseling talk to her about the surgery in detail. I explained Dr. Lacey procedure. I explained my procedure in more detail. We talked about risk. She will return for a preoperati ve visit 1 week before the surgery. [id number] Baltazar Teague MD [facility] [address],[place] [address] 07/12/2023 09:44:06 07/12/2023 15:53:07 Prolapse of female genital organs [id number] N81.9 this patient is a 68-year-ol d female with pelvic organ prolapse. We have agreed to perform robotic supracervi yanely hysterecto my and bilateral salpingo-o ophorectom y along with Urogynecol ogy who will perform sacral spinous ligament fixation. She understand s the risk, benefits, and alternativ es. She is completed the informed consent process and is ready to proceed. [id number] Baltazar Teague MD [facility] [address],[place] [address] 07/22/2023 13:26:50 07/22/2023 13:39:36 [id number] Baltazar Teague MD [facility] [address],[place] [address] 07/26/2023 11:27:03 07/26/2023 13:24:15 Postoperative care [id number] Z48.89 68-year-ol d female presents for postop follow-up. She is 1 week postop from a robotic assisted supracervi yanely hysterecto my and sacral colpopexy. She is recovering normally. She feels very good. She has no complaints . She will follow-up as needed. Incisions are clean dry and intact. Health Concerns Section Related Observation LastModified by Organization [facility] LastModified Time None Recorded Concern Status LastModified by Organization Details LastModified Time None Recorded Advance Directives Directive None Recorded Payers Encounter Date Sequence Insurance Name Policy Number Policy Ferrell Covered Member ID Ferrell Member ID Guarantor Name 04/09/2023 1 [facility] ([facility]ARE [facility]PLAC[facility]/A DVANTAGE - HMO) [id number] Roxi J Montserrat [id number] Roxi Jeffrey Montserrat 05/31/2023 1 [facility] (MEDICARE REPLACEMENT/A DVANTAGE - HMO) [id number] Roxi J Montserrat [id number] Roxi J Montserrat 07/12/2023 1 [facility] (MEDICARE REPLACEMENT/A DVANTAGE - HMO) [id number] Roxi J Montserrat [id number] Roxi J Montserrat 07/19/2023 1 [facility] (MEDICARE REPLACEMENT/A DVANTAGE - HMO) [id number] Roxi J Montserrat [id number] Roxi J Montserrat 07/26/2023 1 [facility] (MEDICARE REPLACEMENT/A DVANTAGE - HMO) [id number] Roxi J Montserrat [id number] Roxi J Montserrat Notes Date Note Type Note Provider Name and Address Organization Details Recorded Time 04/09/2023 text/html Here today for re-evaluation of prolapse. Neg pain of abd/pelvis/flank+ urinary sx's bladder pressure, difficulty emptying bladder.Neg GI sx'sNeg N/V/F/C/DNeg Vag d/c, odor, irritation, itching Jennifer Hurst, [facility]- [address], [place], [address], [facility] 04/09/2023 10:57:11 05/31/2023 text/html this patient is a 60-year-old female with pelvic organ prolapse who failed pessary. We discussed surgery today. We discussed a combination surgery with Urology. Made a decision to perform surgery today. We spent 40 minutes ffes-ti-yswl. More than 50% was counseling talk to her about the surgery in detail. I explained Dr. Lacey procedure. I explained my procedure in more detail. We talked about risk. She will return for a preoperative visit 1 week before the surgery. Baltazar Teague MD [address], [place], [address], [facility] 05/31/2023 12:49:52 07/12/2023 text/html This patient is a 68-year-old female who presents for preoperative care. She has pelvic organ prolapse. We intend to perform laparoscopic / robotic supracervical hysterectomy with bilateral salpingo-oophorecto my. Urogynecology will perform a sacral spinous ligament fixation after that. The patient understands the procedure. The procedure was described to the patient in great detail. the patient also understands the risks. The risks were also explained in detail. She understands that injuries May occur during surgery. She understands these injuries can result in hospitalization, more surgery, and severe illness. She understands there is risk of hemorrhage and infection. Baltazar Teague MD [address], [place], [address], [facility] 07/12/2023 15:49:36 07/26/2023 text/html 68-year-old augusta roberts presents for postop follow-up. She is 1 week postop from a robotic assisted supracervical hysterectomy and sacral colpopexy. She is recovering normally. She feels very good. She has no complaints. She will follow-up as needed. Incisions are clean dry and intact. Baltazar Teague MD [address], [place], [address], [facility] 07/26/2023 13:18:18 OBGyn Episode Ob Episode Information Episode Created Date Number of Fetuses Patient Bloodtype Patient rh Status Prepregnancy Weight lbs Domestic Partner Domestic Partner Phone Father Name [employer] Status 10/19/19 21 1 CLOSED Fetus Data First Name Last Name Admitted to NICU Weight (g) Sex Living Outcome Pediatric Complications Fetus ID Race Codes Race Delivery Type , Spontane ous [id number] Reddy Calculation Initial Reddy Date Initial Exam Date Initial Exam Provider Initial Ultrasound Date Last Menstrual Period Date Ultra Sound Weeks Gestation 0 Eighteen To Twenty Week Reddy Update Ultra Sound Date Fundal Height At Umbil Quickening Date Ultra Sound Latest Weeks Gestation Final Reddy Confirmed By Final Reddy Confirmed Date Final Reddy Date Ultra Sound Latest Days Gestation 0 0 Menstrual History Last Menstrual Date Menses Monthly On Bcp Conception Prior Menses Frequency Hcg Plus Date Menarche Onset Age Delivery Information Delivery Date Delivery Type Labor Anesthesia Weeks Gestation Incision Type Labor Labor Length Hrs Delivered By Post Complications Tubal Sterilization Discharge Date Comments 8 Discharge Information Feeding Method Contraceptive Method Maternal HG B and HCT Levels Ob Episode Information Episode Created Date Number of Fetuses Patient Bloodtype Patient rh Status Prepregnancy Weight lbs Domestic Partner Domestic Partner Phone Father Name [employer] Status 10/19/19 21 1 CLOSED Fetus Data First Name Last Name Admitted to NICU Weight (g) Sex Living Outcome Pediatric Complications Fetus ID Race Codes Race Delivery Type Full Term [id number] Vaginal Delivery Reddy Calculation Initial Reddy Date Initial Exam Date Initial Exam Provider Initial Ultrasound Date Last Menstrual Period Date Ultra Sound Weeks Gestation 0 Eighteen To Twenty Week Reddy Update Ultra Sound Date Fundal Height At Umbil Quickening Date Ultra Sound Latest Weeks Gestation Final Reddy Confirmed By Final Reddy Confirmed Date Final Reddy Date Ultra Sound Latest Days Gestation 0 0 Menstrual History Last Menstrual Date Menses Monthly On Bcp Conception Prior Menses Frequency Hcg Plus Date Menarche Onset Age Delivery Information Delivery Date Delivery Type Labor Anesthesia Weeks Gestation Incision Type Labor Labor Length Hrs Delivered By Post Complications Tubal Sterilization Discharge Date Comments 9 Discharge Information Feeding Method Contraceptive Method Maternal HG B and HCT Levels Ob Episode Information Episode Created Date Number of Fetuses Patient Bloodtype Patient rh Status Prepregnancy Weight lbs Domestic Partner Domestic Partner Phone Father Name [employer] Status 10/19/19 21 1 CLOSED Fetus Data First Name Last Name Admitted to NICU Weight (g) Sex Living Outcome Pediatric Complications Fetus ID Race Codes Race Delivery Type , Spontane ous 8304 Reddy Calculation Initial Reddy Date Initial Exam Date Initial Exam Provider Initial Ultrasound Date Last Menstrual Period Date Ultra Sound Weeks Gestation 0 Eighteen To Twenty Week Reddy Update Ultra Sound Date Fundal Height At Umbil Quickening Date Ultra Sound Latest Weeks Gestation Final Reddy Confirmed By Final Reddy Confirmed Date Final Reddy Date Ultra Sound Latest Days Gestation 0 0 Menstrual History Last Menstrual Date Menses Monthly On Bcp Conception Prior Menses Frequency Hcg Plus Date Menarche Onset Age Delivery Information Delivery Date Delivery Type Labor Anesthesia Weeks Gestation Incision Type Labor Labor Length Hrs Delivered By Post Complications Tubal Sterilization Discharge Date Comments 4 Discharge Information Feeding Method Contraceptive Method Maternal HG B and HCT Levels Ob Episode Information Episode Created Date Number of Fetuses Patient Bloodtype Patient rh Status Prepregnancy Weight lbs Domestic Partner Domestic Partner Phone Father Name [employer] Status 10/19/19 21 1 CLOSED Fetus Data First Name Last Name Admitted to NICU Weight (g) Sex Living Outcome Pediatric Complications Fetus ID Race Codes Race Delivery Type Full Term 8300 Vaginal Delivery Reddy Calculation Initial Reddy Date Initial Exam Date Initial Exam Provider Initial Ultrasound Date Last Menstrual Period Date Ultra Sound Weeks Gestation 0 Eighteen To Twenty Week Reddy Update Ultra Sound Date Fundal Height At Umbil Quickening Date Ultra Sound Latest Weeks Gestation Final Reddy Confirmed By Final Reddy Confirmed Date Final Reddy Date Ultra Sound Latest Days Gestation 0 0 Menstrual History Last Menstrual Date Menses Monthly On Bcp Conception Prior Menses Frequency Hcg Plus Date Menarche Onset Age Delivery Information Delivery Date Delivery Type Labor Anesthesia Weeks Gestation Incision Type Labor Labor Length Hrs Delivered By Post Complications Tubal Sterilization Discharge Date Comments 3 Discharge Information Feeding Method Contraceptive Method Maternal HG B and HCT Levels Ob Episode Information Episode Created Date Number of Fetuses Patient Bloodtype Patient rh Status Prepregnancy Weight lbs Domestic Partner Domestic Partner Phone Father Name [employer] Status 10/19/19 21 1 CLOSED Fetus Data First Name Last Name Admitted to NICU Weight (g) Sex Living Outcome Pediatric Complications Fetus ID Race Codes Race Delivery Type , Spontane ous 8303 Reddy Calculation Initial Reddy Date Initial Exam Date Initial Exam Provider Initial Ultrasound Date Last Menstrual Period Date Ultra Sound Weeks Gestation 0 Eighteen To Twenty Week Reddy Update Ultra Sound Date Fundal Height At Umbil Quickening Date Ultra Sound Latest Weeks Gestation Final Reddy Confirmed By Final Reddy Confirmed Date Final Reddy Date Ultra Sound Latest Days Gestation 0 0 Menstrual History Last Menstrual Date Menses Monthly On Bcp Conception Prior Menses Frequency Hcg Plus Date Menarche Onset Age Delivery Information Delivery Date Delivery Type Labor Anesthesia Weeks Gestation Incision Type Labor Labor Length Hrs Delivered By Post Complications Tubal Sterilization Discharge Date Comments 6 Discharge Information Feeding Method Contraceptive Method Maternal HG B and HCT Levels
== END 2024-11-21 10:26 | disposition home or self-care (01) ==
LOC: ANHIMG 10:29
PROVIDERS: PCP Nurse Practitioner Family; Visit Provider Nurse Practitioner Family
DX: Z78.0 Asymptomatic menopausal state (principal); M81.0 Age-related osteoporosis without current pathological fracture; M85.852 Other specified disorders of bone density and structure, left thigh; M85.851 Other specified disorders of bone density and structure, right thigh
CPT/HCPCS: 77080

== ENCOUNTER 2025-06-06 08:58 | Outpatient (CLI) | payer MEDICARE, SELFPAY ==
--- OUTSIDE RECORDS SUMMARY | 2025-06-06 09:45 | XMS_ITS | Data Portability ---
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 Plan of Treatment Reminders Order Date Submit Date Provider Last Modified By Organization Details Last Modified Time Details Appointments None recorded. Lab None recorded. Referral urogynecolo gist referral 2022 023 WESTON Lacey MD, [address] [facility] [address], [place], [address], 3 19:19:34 Procedures None recorded. Surgeries None recorded. Imaging None recorded. Medication Orders Imvexxy Maintenance Pack 10 mcg vaginal insert [address] [id number], [address], [place], [id number], 3 10:46:42 Patient TargetsNo targets recorded. Patient InstructionsNo instructions recorded. 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 Problems Name Problem SNOMED Code Status Onset Date Resolution Date Notes Provider Name and Address Organization Details Recorded Time Midline cystocel e 904329741 Active Meka Kimberly [facility] 3 12:31:36 History of calculus of kidney [id number] [facility] 3 12:31:36 No history of clinical finding in subject [id number] Renetta Meka [facility] 3 12:31:36 Female urinary stress incontin ence [id number] [facility] 3 12:31:36 Third degree uterine prolapse 34974035 [facility] 3 12:31:36 Speciali d medical examinat ion Completed 201101/22/2021 Routine gynecolo gical examinat ion;Prac aisha ID: 0001 Lavinia Mckee [facility] 1 10:06:50 Screenin g for malignan t neoplasm of cervix Completed 201101/22/2021 Pap Smear;Pr actice ID: 0001 Lavinia Mckee [facility] 1 10:06:44 Adult health examinat ion Completed 201201/22/2021 Routine general medical examinat ion at a health care facility ;Practic e ID: 0001 Lavinia Mckee [facility] 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 1 10:06:52 Abdomina l pain [id number] Completed 201301/22/2021 Abdomina l pain, other specifie d site;Rec orded Elsewher e: No Locat ion: Romina cortez [facility] S ource: EHR Cnc Router Operator benigno: N Practi ce ID: 0001 Ashkan lable Time: 04:00:00 PM Lavinia Mckee [facility] 1 10:06:20 Screenin g for malignan t neoplasm of rectum Completed 201501/22/2021 Encounte r for screenin g for malignan t neoplasm of rectum;R ecorded Elsewher e: No Locat ion: Romina cortez [facility] S ource: EHR Cnc Router Operator benigno: N Practi ce ID: 0001 Ashkan lable Time: 01:00:00 PM Lavinia Mckee [facility] 1 10:06:46 Microsco pic hematuri a [id number] Completed 201501/22/2021 Other microsco pic hematuri a;Record ed Elsewher e: No Locat ion: Jacque diego [facility] S ource: EHR Cnc Router Operator benigno: N Practi ce ID: 0001 Ashkan lable Time: 01:00:00 PM Laivnia Mckee [facility] 1 10:06:[address] Concept Completed 201601/22/2021 Encntr for general adult medical exam w/o abnormal findings ;Recorde d Elsewher e: No Locat ion: [facility] diego [facility] S ource: EHR Cnc Router Operator benigno: N Practi ce ID: 0001 Ashkan lable Time: 08:30:00 AM Lavinia Mckee [facility] 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 1 10:06:49 Disorder of pelvic region of trunk Completed 201801/22/2021 Cystocel e;Record ed Elsewher e: No Locat ion: [facility] diego [facility] S ource: EHR Cnc Router Operator benigno: N Practi ce ID: 0001 Ashkan lable Time: 08:30:00 AM Lavinia Mckee [facility] 1 10:06:24 Blood leukocyt e number above referenc e range [id number] Completed 201801/22/2021 Elevated white blood cell count, unspecif ied;Quintin rded Elsewher e: No Locat ion: Romina cortez [facility] S ource: EHR Cnc Router Operator benigno: N Practi ce ID: 0001 Ashkan lable Time: 08:30:00 AM Lavinia Mckee [facility] 1 10:06:32 Evaluati on finding Completed 201901/22/2021 Hematuri a, unspecif ied;Quintin rded Elsewher e: No Locat ion: Romina cortez [facility] S ource: EHR Cnc Router Operator benigno: N Practi ce ID: 0001 Ashkan lable Time: 11:56:07 AM Lavinia Mckee [facility] 1 10:06:30 Vaginal pessary in situ [id number] 04 Active 2021 Meka Harris [facility] 3 12:31:35 Notes:Some problems listed i n Document: #[id number] could not be added to this patient's chart. Please review this document and add these problems to the patient's chart manually as needed. Problem Notes None recorded. Procedures Surgical History Date Name Laterality Status Provider Name and Address Organization Details Recorded Time 2 Pessary Check completed CORNELIA Shields- [address], [place], [address], [facility] 01/20/2022 17:01:33 1 Most Recent Bone Density completed [facility] 09/17/2021 12:58:00 1 Pessary Check completed Jennifer Hurst [facility] [address], [place], [address], [facility] 04/25/2021 15:31:49 1 Date of Last Mammogram completed Lavinia [facility] 04/24/2021 16:44:47 1 completed [facility] 04/24/2021 16:46:29 1 Pessary Insertion completed Jennifer Hurst [facility] [address], [place], [address], [facility] 01/24/2021 11:39:43 1 Pessary Insertion completed Jennifer Hurst [facility] [address], [place], [address], [facility] 01/18/2021 12:25:16 8 Date of Last Pap Smear completed Sharon Lagunas [facility] 10/18/2020 13:46:33 7 completed [facility] 01/22/2021 10:08:12 Dilation and Curettage completed Sharon Lagunas [facility] 10/18/2020 13:49:30 Imaging Results None recorded. Procedure Notes None recorded. Medical Equipment None Reported. Allergies No known drug allergies Medications Name Sig Start Date Stop Date Status Note LastModified by Organization Details LastModified Time Zyrtec-D 5 mg-120 mg tablet,ex tended release take 1 tablet by oral route every 12 hours 01/26 completed Prescrib ed Elsewher e: Yes Loca tion: Romina cortez [facility] M odify By: cmedical Encount er DateTime [...] Not Available Not Available No t Available mupirocin 2 % topical ointment APPLY TOPICALL Y TO THE AFFECTED AREA TWICE DAILY active Not Available Not Available [...] hours 01/26 completed Prescrib ed Elsewher e: No Locat ion: Romina [facility] odify [facility] En[facility] DateTime : 10/24/19 14 04:00:00 PM Not Available Not Available Not Available Premarin 0.625 mg/gram vaginal cream INSERT 1 GRAM VAGINALL Y 2 TIMES A WEEK AT BEDTIME 09/19 completed Not Available Not Available Not Available [employer] Allergy 25 mg capsule take 2 capsule by oral route every 4 - 6 hours as needed active Prescrib ed Elsewher e: Yes Loca tion: [facility] M odify By: cmedical Encount er DateTime : 01/27/20 14 09:00:00 AM Not [...] Body mass index (BMI) Body weight Systolic And Diastolic Provider Name and Address Organization Details Last Updated DateTime 04/09/2023 160.66 cm 26.7 kg/m2 39042.04 g 126/72 mm[Hg] Modesta Chand [facility] 04/09/2023 10:17:21 Date Recorded Body height Body mass index (BMI) Body weight Systolic And Diastolic Provider Name and Address Organization Details Last Updated DateTime 05/31/2023 160.66 cm 26.9 kg/m2 71118.63 g 138/79 mm[Hg] [facility] 05/31/2023 12:31:15 Date Recorded Body height Body mass index (BMI) Body weight Systolic And Diastolic Provider Name and Address Organization Details Last Updated DateTime 07/12/2023 160.66 cm 26.9 kg/m2 24629.63 g 123/79 mm[Hg] [facility] 07/12/2023 10:08:19 Date Recorded Body height Body mass index (BMI) Body weight Systolic And Diastolic Provider Name and Address Organization Details Last Updated DateTime 07/26/2023 160.66 cm 26.9 kg/m2 96347.63 g 135/84 mm[Hg] [facility] 07/26/2023 12:13:31 Social History Question Answer Notes LastModified by Organizat ion Details LastModified Time Tobacco Smoking Status Never Smoker [facility] 10/18/2020 15:40:30 Are You Blind Or Do You Have [...] Yes Information not available 01/22/2021 Do You Use Sunscreen Routinely? Yes Information not available 01/22/2021 Has Tobacco Cessation Counseling Been Provided? No Information not available 10/18/2020 Do You Have Difficulty Walking Or Climbing Stairs? No Information not available 10/31/2021 Sex: Unknown Functional Status Question Answer Note LastModified by Organizat ion Details LastModified Time Do you use any illicit or recreational drugs? No Information not available 10/18/2020 Do you or have you ever used any other forms of tobacco or nicotine? No Information not available 10/18/2020 What is your level of alcohol consumption? Occasional Information not available 01/22/2021 Are you able to walk independently without assistance or assistive devices? YESWOREST Information not available 01/22/2021 Are you able to care for yourself independently? Yes Information not available 10/31/2021 Do you have difficulty dressing, bathing, grooming, or toileting? No Information not available 10/31/2021 What is your exercise level? Moderate Information not available 01/22/2021 Mental Status Question Answer Note LastModified by Organization D etails LastModified Time Do you feel stressed (tense, restless, nervous, or anxious, or unable to sleep at night)? [id number] Information not available 01/22/2021 Family History Relationship Description Onset Age of [...] 10/18/2020 13:49:02 Medical History Condition Response Other Kidney or Bladder Problems Y Anemia Y Gynecological History Statement/Question Response Date of [...] SARS-COV-2 (COVID-19) vaccine, UNSPECIFIED completed Not Available [facility] 04/28/2023 16:36:26 Past Encounters Encounter ID Performer Location Encounter Start Date Encounter Closed Date Diagnosis/Indication Diagnosis SNOMED-CT Code Diagnosis ICD10 Code Diagnosis IMO Codes Diagnosis Note [id number] Jennifer Hurst [facility] [address] [address] 10/18/2020 15:31:38 10/18/2020 17:28:34 Gynecologic examination 44919763 Z01.419 Take Calcium with Vitamin D 12-1500mg daily. Do monthly self breast exams. It is advised to get annual flu shot in the fall and she could obtain at [facility] or [facility]. If you haven't received the Tdap vaccine [...] age/pap-hp v hx wnl Postmenopa usal osteopenia 826400416 M85.80 Midline cystocele 683515 003 N81.11 cystocele/ bladder prolapse seen on [...] regarding this issue. Understand ing verbalized . [id number] Jennifer Hurst [facility] [address],[facility] [place] [address] 01/18/2021 10:47:03 01/18/2021 12:31:36 Midline cystocele 233890816 N81.11 Ring with support size #5 from kit. Will call to confirm this is working & we will order one of her own. Urine stream improved immediatel y after insertion of this device. She is VERY happy. Will confirm wednesday that this size is appropriat e & we can place order. [id number] [facility] [address],[place] [address] 01/24/2021 10:09:40 01/24/2021 11:54:05 Midline cystocele 858161751 N81.11 Ring with support size #4 from [...] this patient s visit, including available hand cardiovascular tech upon arrive, temperatur e check and being asked a series of screening questions. All staff wore face coverings during this encounter, as well as provided additional cleaning and sanitizing of all surfaces, including countertop s, pens, chairs, door handles, light switches, etc, prior to and following the patient s visit. [id number] [facility] [address],[facility] [place] [address] 02/21/2021 10:33:10 02/21/2021 12:21:45 Prolapse of female genital organs 07419821 N81.9 Trial of pessary ring with support [...] this patient s visit, including available hand cardiovascular tech upon arrive, temperatur e check and being asked a series of screening questions. All staff wore face coverings during this encounter, as well as provided additional cleaning and sanitizing of all surfaces, including countertop s, pens, chairs, door handles, light switches, etc, prior to and following the patient s visit. [id number] CORNELIA Shields[facility] [address] [address] 04/25/2021 14:26:46 04/25/2021 16:02:05 Urinary symptoms 518080743 R39.9 Cystocele 315865671 N81. 10 N89.8 Doing really well with [...] this patient s visit, including available hand cardiovascular tech upon arrive, temperatur e check and being asked a series of screening questions. All staff wore face coverings during this encounter, as well as provided additional cleaning and sanitizing of all surfaces, including countertop s, pens, chairs, door handles, light switches, etc, prior to and following the patient s visit. [id number] Jennifer Hurst [facility] [address],[place] [address] 06/20/2021 14:20:31 06/20/2021 15:10:16 Postmenopausal bleeding 11548214 N95.0 Exam wnl todayTo ensure no other issues I have recommende d an US be updated.ana rosa khoury is in agreement. Pessary was cleaned with betadine & warm water.Rein serted pessary and tolerated well. Can have the [employer] tech's have myself or other providers remove & [...] this patient s visit, including available hand cardiovascular tech upon arrive, temperatur e check and being asked a series of screening questions. All staff wore face coverings during this encounter, as well as provided additional cleaning and sanitizing of all surfaces, including countertop s, pens, chairs, door handles, light switches, etc, prior to and following the patient s visit. [id number] Baltazar Teague MD [facility] [address],[place] [address] 06/27/2021 15:36:59 06/28/2021 10:41:04 Postmenopausal bleeding 93854677 N95.0 [id number] Jennifer Hurst [facility] [address],[place] [address] 09/19/2021 12:47:22 09/20/2021 09:29:57 Pessary care 282429303 Z46.89 Here today for 3mos pessary cleaning [...] this patient s visit, including available hand cardiovascular tech upon arrive, temperatur e check and being asked a series of screening questions. All staff wore face coverings during this encounter, as well as provided additional cleaning and sanitizing of all surfaces, including countertop s, pens, chairs, door handles, light switches, etc, prior to and following the patient s visit. [id number] Jennifer Hurst , [facility] [address] [address] 10/31/2021 09:29:32 10/31/2021 10:58:27 Gynecologic examination 37259576 Z01.419 Take Calcium with Vitamin D 12-1500mg daily. Do monthly self breast exams. It is advised to get annual flu shot in the fall and she could obtain at [facility] or [facility] care clinic. If you haven't received the Tdap [...] Routine Labs PCP updated Postmenopa usal osteopenia 436565689 M85.80 Declines Rx Therapy.Wi ll continue her weight bearing activity and dietary changes.Wi ll r/p Dexa 2022 Midline cystocele 189663 003 N81.11 Ring with support size #4 cleaned & reinserted [id number] Jennifer Hurst [facility] [address],[place] [address] 01/20/2022 09:21:52 01/20/2022 18:13:45 Pessary care 048984121 Z46.89 Here today for 3mos pessary cleaning [...] this patient s visit, including available hand cardiovascular tech upon arrive, temperatur e check and being asked a series of screening questions. All staff wore face coverings during this encounter, as well as provided additional cleaning and sanitizing of all surfaces, including countertop s, pens, chairs, door handles, light switches, etc, prior to and following the patient s visit. [id number] Dacia Rao MD [facility] [address],[place] [address] 02/10/2022 14:53:50 02/11/2022 15:58:42 Vaginal pessary in situ 0003393023 104 Z96.0 [id number] Jennifer Hurst [facility] [address],[facility] [place] [address] 04/09/2023 10:08:11 04/09/2023 11:13:05 Prolapse of female genital organs 43409683 N81.9 mixed prolapse cystoceleF sandra pessaryWor sening from a year agoSignifi cantly effecting physical/m ental/emot ional well-being .rec call to schedule this appt Time spent in visit is a total of 15 mins with at least 50% of visit consisting of counseling and review of plan of care. Atrophic vaginitis 39987 000 N95.2 Restart vag estrogen [id number] Baltazar Teague MD [facility] [address],[place] [address] 05/31/2023 11:36:24 05/31/2023 12:51:23 Prolapse of female genital organs 03989301 N81.9 this patient is a 60-year-ol d [...] ve visit 1 week before the surgery. [id number] Baltazar Teague MD [place] [address],[place] [address] 07/12/2023 09:44:06 07/12/2023 15:53:07 Prolapse of female genital organs 88393654 N81.9 this patient is a 68-year-ol d female with pelvic organ prolapse. We have agreed to perform robotic supracervi yanely hysterecto my and bilateral salpingo-o ophorectom y along with Urogynecol ogy who will perform sacral spinous ligament fixation. She understand s the risk, benefits, and alternativ es. She is completed the informed consent process and is ready to proceed. [id number] Baltazar Teague MD [facility] [address],[place] [address] 07/22/2023 13:26:50 07/22/2023 13:39:36 [id number] Baltazar Teague MD [facility] [address],[place] [address] 07/26/2023 11:27:03 07/26/2023 13:24:15 Postoperative care 244959996 Z48.89 68-year-ol d female presents for postop follow-up. She is 1 week postop from a robotic assisted supracervi yanely hysterecto my and sacral colpopexy. She is recovering normally. She feels very good. She has no complaints . She will follow-up as needed. Incisions are clean dry and intact. Health Concerns Section Related Observation LastModified by Organization Detai ls LastModified Time None Recorded Concern Status LastModified by Organization Details LastModified Time None Recorded Advance Directives Directive None Recorded Payers Insurance Date Sequence Insurance Name Policy Number Policy Ferrell Covered Member ID Ferrell Member ID Guarantor Name 12/31/[address] [facility] (MEDICARE REPLACEMENT/ ADVANTAGE - HMO) [id number] Roxi Parksoonover [id number] Roxi Jeffrey Mariano 04/09/2023 1 [place] Roxi Murphy Montserrat [id number] Roxi Mariano Notes Date Note Type Note Provider Name and Address Organization Details Recorded Time 04/09/2023 text/html ROS as noted in the HPI Here today for re-evaluation of prolapse. Neg pain of abd/pelvis/flank+ urinary sx's bladder pressure, difficulty emptying bladder.Neg GI sx'sNeg N/V/F/C/DNeg Vag d/c, odor, irritation, itching Jennifer Hurst, [facility] [address], [place], [address], [facility] 04/09/2023 10:57:11 05/31/2023 text/html this patient is a 60-year-old female with pelvic organ prolapse who failed pessary. We discussed surgery today. We discussed a combination surgery with Urology. Made a decision to perform surgery today. We spent 40 minutes [id number]. More than 50% was counseling talk to her about the surgery in detail. I explained Dr. Lacey procedure. I explained my procedure in more detail. We talked about risk. She will return for a preoperative visit 1 week before the surgery. Baltazar Teague MD [address], [place], [address], [facility] 05/31/2023 12:49:52 07/12/2023 text/html This patient [...] infection. Baltazar Teague MD [address], [place], [address], [facility] 07/12/2023 15:49:36 07/26/2023 text/html 68-year-old female presents for postop follow-up. She is 1 week postop from a robotic assisted supracervical hysterectomy and sacral colpopexy. She is recovering normally. She feels very good. She has no complaints. She will follow-up as needed. Incisions are clean dry and intact. Baltazar Teague MD [address], [place], [address], [facility] 07/26/2023 13:18:18 OBGyn Episode Ob Episode Information Episode Created Date Number of Fetuses Patient Bloodtype Patient rh Status Prepregnancy Weight lbs Domestic Partner Domestic Partner Phone Father Name Water Sander Status 10/19/19 21 1 CLOSED Fetus Data [...] Domestic Partner Domestic Partner Phone Father Name Water Sander Status 10/19/19 21 1 CLOSED Fetus Data [...] Domestic Partner Domestic Partner Phone Father Name Water Sander Status 10/19/19 21 1 CLOSED Fetus Data [...] Domestic Partner Domestic Partner Phone Father Name Water Sander Status 10/19/19 21 1 CLOSED Fetus Data First Name Last Name Admitted to NICU Weight (g) Sex Living Outcome Pediatric Complications Fetus ID Race Codes Race Delivery Type , Spontane ous [id number] Reddy Calculation Initial Reddy Date Initial Exam Date Initial Exam Provider Initial Ultrasound Date Last Menstrual Period Date Ultra Sound Weeks Gestation 0 Eighteen To Twenty Week Rdedy Update Ultra Sound Date Fundal Height At [...] Domestic Partner Domestic Partner Phone Father Name Water Sander Status 10/19/19 21 1 CLOSED Fetus Data [...]
[2025-06-06 15:06] LABS: Hematocrit 40.1 % (37.0-47.0); Hemoglobin 12.4 g/dL (12.0-15.0); Immature Granulocyte Percent A 0.2 % (0-0.5); Lymphocytes Absolute Auto 1.80 K/mm3 (0.9-3.2); Mean Corpuscular HGB Conc 30.9 g/dl (32-36); Mean Corpuscular Hemoglobin 30.9 pg (26-34); Mean Corpuscular Volume 100.0 fl (80-100); Nucleated Red Blood Cells Absolute Auto 0.000 K/mm3 (0.0-0.012); Nucleated Red Blood Cells Perc 0.0 % (0.0-0.2); Platelet Count Result 309 k/mm3 (150-375); Red Blood Count 4.01 M/mm3 (4.2-5.4); White Blood Count 4.8 K/mm3 (4.5-10.0)
[2025-06-06 15:53] LABS: Alanine Aminotransferase 25 U/L (6-35); Albumin Level 4.2 g/dL (3.5-5.1); Alkaline Phosphatase 53 U/L (38-126); Anion Gap 5 mmol/L (4-12); Aspartate Amino Transferase 42 U/L (14-36); Bilirubin,Total 0.9 mg/dL (0.2-1.3); Blood Urea Nitrogen 12 mg/dL (7-17); Calcium 9.1 mg/dL (8.4-10.2); Carbon Dioxide 30 mmol/L (22-30); Chloride 104 mmol/L (98-107); Cholesterol 232 mg/dL (0-200); Estimated Glomerular Filt Rate > 60; Glucose 86 mg/dL (65-110); HDL Direct 37 mg/dL; Potassium 4.9 mmol/L (3.4-5.0); Sodium 139 mmol/L (137-145); Total Protein 8.3 g/dL (6.3-8.2); Triglycerides 122 mg/dL (<150)
== END 2025-06-06 08:59 | disposition home or self-care (01) ==
LOC: ANHGOSHLAB 08:59
PROVIDERS: PCP Nurse Practitioner Family; Visit Provider Nurse Practitioner Family
DX: E78.5 Hyperlipidemia, unspecified (principal); E55.9 Vitamin D deficiency, unspecified; I10 Essential (primary) hypertension
CPT/HCPCS: 36415; 80053; 80061; 82306; 85025